=== PATIENT | male | born 1965 | race Caucasian/White ===

== ENCOUNTER 2021-01-21 23:22 | Inpatient (IN) ==
[2021-01-22] MEDS ORDERED: SODIUM CHLORIDE 0.9% 1000ML 1,000 ML IV ONE (00:21)
[2021-01-22 00:30] LABS: Hematocrit (blood only) 47.6 % (42-52); Hemoglobin 17.2 g/dL (14.0-18.0); Immature Granulocytes # (auto) 0.01 K/uL (0.00-0.02); Immature Granulocytes % (auto) 0.2 %; Lymphocytes # (auto) 0.48 K/uL (1.2-3.4); Lymphocytes % (auto) 8.4 %; Mean Corpuscular Hgb Conc 36.1 g/dL (32-36); Mean Corpuscular Volume 88.5 fL (80-100); Mean Platelet Volume 9.7 fL (7.4-10.4); Monocytes # (auto) 0.33 K/uL (0.11-0.59); Monocytes % (auto) 5.8 %; Neutrophils # (auto) 4.88 K/uL (1.4-6.5); Neutrophils % (auto) 85.6 %; Platelet Count 158 K/uL (130-400); RDW Coefficient of Variation 12.5 % (11.5-14.5); RDW Standard Deviation 39.7 fL (36.4-46.3); Red Blood Count 5.38 M/uL (4.7-6.1)
[2021-01-22 00:35] LABS: Appearance Urine Cloudy (Clear); Blood Urine 1+ (Negative); Color Urine Dark Yellow; Epithelial Cell Urine Auto >30 /lpf (0-5); Glucose Urine UA Negative (Negative); Ketones Urine 1+ (Negative); Leukocyte Esterase Urine Negative (Negative); Nitrite Urine Negative (Negative); Protein Urine 3+ (Negative); Urobilinogen Urine Negative (Negative); pH Urine 5.5 (4.5-7.5)
[2021-01-22 00:36] LABS: Bilirubin Urine 1+ (Negative)
[2021-01-22 00:41] LABS: INR 1.1 (0.9-1.1); Partial Thromboplastin Ratio 1.2; Partial Thromboplastin Time 31.3 Seconds (21.0-31.0); Prothrombin Time 11.1 Seconds (9.0-12.0)
--- NOTE | 2021-01-22 00:43 | Emergency Department Note ---
Impression & Plan Multifocal pneumonia, Left-sided chest pain, Elevated troponin, Syncope Admit to the [facility] ED Provider Note NAME: SO HUGO AGE: 55 SEX: M ARRIVES VIA: Walk-In INFORMANT: Patient ED PROVIDER(S): Pauline Rodriguez DO CHIEF COMPLAINT: Syncope PLAN: Disposition: Admit to the [facility] Condition: Stable MEDICAL DECISION MAKING: This is a 55-year-old male patient who was diagnosed with Covid yesterday who got out of bed to get some Tylenol for his fever when he had a syncopal event and struck his head. Patient has a laceration to the right forehead which required sutures. The patient was noted to be hypoxic at home. He complained of some left-sided chest pain here in the emergency department. Chest x-ray here shows evidence of a multifocal pneumonia. He had an elevated D-dimer and went for CT scan of the chest to rule out PE. This showed no evidence of pulmonary emboli but confirmed the multifocal airspace opacities consistent with Covid pneumonia. Patient was given IV Decadron. O2 saturations remained stable. However, the patient had an elevated troponin. This in conjunction with the patient's left-sided chest pain was concerning for myocarditis in light of the patient's Covid diagnosis. [facility]. Triage Nursing notes reviewed and agree with them. Vital Signs: reviewed and unremarkable Differential diagnosis: PE, myocarditis, vasovagal syncope, forehead laceration, dehydration ER treatment provided: IV normal saline Diagnostics interpreted by me: ECG: Normal sinus rhythm at a rate of [address] segment elevation or signs of ischemia. There is no ectopy. QTC is 467 ms. Cardiac Monitoring: Normal sinus rhythm at 98 Laboratory studies: See below Imaging studies: As per my interpretation Chest x-ray: Multifocal airspace opacities consistent with Covid CTA chest: As per stat rad Multiple scattered patchy groundglass airspace opacities likely secondary to an atypical respiratory infection compatible with COVID-19. No evidence of an acute pulmonary embolus. HPI: 55/M arrives for evaluation of syncope. [facility] of fever. He was tested for Covid with a positive result. He had a chest x-ray which he believes was negative. Tonight, the patient got up from bed to get medications for his fever and had a syncopal event striking his forehead on a nightstand. His family checked his pulse ox at that time and found it to be in the 80s. The patient describes some intermittent left-sided chest pain especially with different body positions. He had also had some dental abscess for which she was prescribed Zithromax a couple of days ago. ROS: See above HPI for pertinent positives & negatives. A total of 10 systems reviewed and were otherwise negative. PAST MEDICAL HISTORY:Vitiligo PAST SURGICAL HISTORY:See Below FAMILY HISTORY:See Below SOCIAL HISTORY:See Below HOME MEDICATIONS:See list ALLERGIES:See list VITALS:See Below PHYSICAL EXAMINATION: HEENT: Head - normocephalic with a 2 cm laceration to the right forehead. Pup ils are equal, round, and reactive to light. Extraocular eye muscles are intact, and sclera are anicteric. Nose - moist nasal mucosa without discharge. Mouth - moist buccal mucosa. Oropharynx is nonerythematous and there is no tonsillar exudate or edema noted. Neck: Supple; no pain to palpation over the posterior cervical spine. There is no nuchal rigidity or cervical lymphadenopathy. Heart: Regular rate and rhythm. There is a normal S1 and S2 with no murmurs, clicks, or gallops appreciated. Lungs: Clear to auscultation bilaterally with no wheezes, rales, or rhonchi. Abdomen: Soft, completely nontender, nondistended, with good bowel sounds. There are no palpable pulsatile masses or hepatosplenomegaly. There is no guarding, rigidity, or rebound noted. Extremities: No evidence of cyanosis, clubbing, or edema. There are easily palpable peripheral pulses. Skin: warm and dry with good turgor and no rashes. ED COURSE: Times/Reassessments: [id number]: The patient was evaluated in room C10. A complete history and physical was performed. Laboratory studies were drawn as above. The patient was given a liter of saline solution as he had had a syncopal event. Twelve-lead EKG was obtained. An order was placed for continuous cardiac monitoring. The patient is in a normal sinus rhythm at a rate of 98. Chest x-ray was performed. Patient was given 10 mg of IV Decadron. The patient will go for CT scan of the chest to rule out PE. Please see procedure note dictation from Vivek Perry PA-C for the repair of the wound to the patient's forehead. The patient remained hemodynamically stable. I discussed the case with the [facility] hospitalist and the patient will be admitted. Pauline Rodriguez DO Past Med/Surg History Social History Smoking Status: Never smoker Hx Alcohol Use: No Hx Substance Use: No Preferred Language: Sudanese Communication Ability: Effective Closet Organizer Required: No Beliefs That Will Affect Care: None Current Living Situation: Spouse Other Information That Helps Us Care for You: No Feels Safe at Home: Yes Safety Concerns: Feels Safe At This Time Assistive Devices: None Allergies Allergies Allergy/AdvReac Type Severity Reaction Status Date / Time ciprofloxacin AdvReac Intermediate Joint Pain Verified 01/22/21 00:33 Home Meds Home Medications Medication Instructions Recorded Confirmed amoxicillin 500 mg-potassium 1 tab PO BID 01/22/21 01/22/21 clavulanate 125 mg tablet fluticasone propionate 50 2 spray INTRANASAL DAILY PRN 01/22/21 01/22/21 mcg/actuation nasal spray,suspension Results & Data (ED) Vital Signs Vital Signs - 24 hr 01/21/21 23:26 01/22/21 00:24 01/22/21 00:30 Temperature 37.6 C H Temperature Source Temporal Artery Scan Pulse Rate 98 H 90 Respiratory Rate 20 18 Blood Pressure 161/87 H 153/96 H Blood Pressure Mean 111 115 Pulse Oximetry 97 95 93 Oxygen Delivery Method Room Air Room Air Room Air Sepsis Recent Fever Within 48 Hours Yes Sepsis New/Unexplained Change in Mental Status N/A Sepsis Action Taken by Nursing No Action Required 01/22/21 01:48 EDT 01/22/21 01:00 EST 01/22/21 02:00 Temperature 39.2 C H Temperature Source Oral Pulse Rate 91 H 90 Respiratory Rate 13 15 Blood Pressure 159/108 H 105/80 Blood Pressure Mean 125 88 Pulse Oximetry 94 92 Oxygen Delivery Method Room Air Sepsis Recent Fever Within 48 Hours Sepsis New/Unexplained Change in Mental Status Sepsis Action Taken by Nursing 01/22/21 02:30 01/22/21 03:30 Temperature Temperature Source Pulse Rate 91 H 82 Respiratory Rate 23 19 Blood Pressure 111/75 117/89 Blood Pressure Mean 87 98 Pulse Oximetry 93 95 Oxygen Delivery Method Sepsis Recent Fever Within 48 Hours Sepsis New/Unexplained Change in Mental Status Sepsis Action Taken by Nursing Laboratory Data Result diagrams: 01/22/21 00:00 01/22/21 00:00 Lab Results 01/21/21 01/22/21 01/22/21 Range/Units 23:48 00:00 00:00 WBC 5.70 (4.8-10.8) K/uL RBC 5.38 (4.7-6.1) M/uL Hgb 17.2 (14.0-18.0) g/dL Hct 47.6 (42-52) % MCV 88.5 (80-100) fL MCH 32.0 (25-34) pg MCHC 36.1 H (32-36) g/dL RDW Std Deviation 39.7 (36.4-46.3) fL RDW Coeff of Usman 12.5 (11.5-14.5) % Plt Count 158 (130-400) K/uL MPV 9.7 (7.4-10.4) fL Immature Gran % (Auto) 0.2 % Neut % (Auto) 85.6 % Lymph % (Auto) 8.4 % [place] % (Auto) 5.8 % Eos % (Auto) 0.0 % Baso % (Auto) 0.0 % Neut # (Auto) 4.88 (1.4-6.5) K/uL Lymph # (Auto) 0.48 L (1.2-3.4) K/uL [place] # (Auto) 0.33 (0.11-0.59) K/uL Eos # (Auto) 0.00 (0-0.5) K/uL Baso # (Auto) 0.00 (0-0.2) K/uL Immature Gran # (Auto) 0.01 (0.00-0.02) K/uL ESR (0-20) mm/hr PT (9.0-12.0) Seconds INR (0.9-1.1) APTT (21.0-31.0) Seconds PTT Ratio D-Dimer (0-500) ug/L FEU Sodium 138 (136-145) mmol/L Potassium 3.4 L (3.5-5.1) mmol/L Chloride 103 (98-107) mmol/L Carbon Dioxide 32 (21-32) mmol/L Anion Gap 3.0 (3-11) BUN 17 (7-18) mg/dl Creatinine 1.26 (0.6-1.4) mg/dl Est Cr Clr Drug Dosing 65.5 ml/min Est GFR ( Amer) 73.4 ml/min Est GFR (Non-Af Amer) 63.3 ml/min BUN/Creatinine Ratio 13.1 (10-20) Glucose 124 H (70-99) mg/dl Lactate (0.4-2.0) mmol/L Calcium 8.5 (8.5-10.1) mg/dl Magnesium 2.2 (1.8-2.4) mg/dl Total Bilirubin 0.6 (0.2-1) mg/dl AST 34 (15-37) U/L ALT 46 (12-78) U/L Alkaline Phosphatase 91 (45-117) U/L Troponin I 0.237 H* (0-0.045) ng/ml C-Reactive Protein (0-0.29) mg/dl Total Protein 8.1 (6.4-8.2) gm/dl Albumin 3.7 (3.4-5.0) gm/dl Globulin 4.4 H (2.5-4.0) gm/dl Albumin/Globulin Ratio 0.8 L (0.9-2) Urine Color Dark Yellow Urine Appearance Cloudy A (Clear) Urine pH 5.5 (4.5-7.5) Ur Specific [place] 1.030 (1.000-1.030) Urine Protein 3+ H (Negative) Urine Glucose (UA) Negative (Negative) Urine Ketones 1+ H (Negative) Urine Blood 1+ H (Negative) Urine Nitrite Negative (Negative) Urine Bilirubin 1+ H (Negative) Urine Urobilinogen Negative (Negative) Ur Leukocyte Esterase Negative (Negative) Urine WBC (Auto) 5-10 H (0-5) /hpf Urine RBC (Auto) 5-10 H (0-4) /hpf U Hyaline Cast (Auto) >30 H (0-5) /lpf U Epithel Cells (Auto) >30 H (0-5) /lpf Urine Bacteria (Auto) 1+ H (Negative) Ur Renal Epithelial Cell Not Reportable Granular Casts 10-20 H (0) /lpf WBC Casts 5-10 H (0) /lpf Urine Mucus Present A (None Prsent) COVID-19 Eval Order SARS-CoV-2 (PCR) (Negative) 01/22/21 01/22/21 01/22/21 Range/Units 00:00 00:00 00:16 WBC (4.8-10.8) K/uL RBC (4.7-6.1) M/uL Hgb (14.0-18.0) g/dL Hct (42-52) % MCV (80-100) fL MCH (25-34) pg MCHC (32-36) g/dL RDW Std Deviation (36.4-46.3) fL RDW Coeff of Usman (11.5-14.5) % Plt Count (130-400) K/uL MPV (7.4-10.4) fL Immature Gran % (Auto) % Neut % (Auto) % Lymph % (Auto) % [place] % (Auto) % Eos % (Auto) % Baso % (Auto) % Neut # (Auto) (1.4-6.5) K/uL Lymph # (Auto) (1.2-3.4) K/uL [place] # (Auto) (0.11-0.59) K/uL Eos # (Auto) (0-0.5) K/uL Baso # (Auto) (0-0.2) K/uL Immature Gran # (Auto) (0.00-0.02) K/uL ESR (0-20) mm/hr PT 11.1 (9.0-12.0) Seconds INR 1.1 (0.9-1.1) APTT 31.3 H (21.0-31.0) Seconds PTT Ratio 1.2 D-Dimer (0-500) ug/L FEU Sodium (136-145) mmol/L Potassium (3.5-5.1) mmol/L Chloride (98-107) mmol/L Carbon Dioxide (21-32) mmol/L Anion Gap (3-11) BUN (7-18) mg/dl Creatinine (0.6-1.4) mg/dl Est Cr Clr Drug Dosing ml/min Est GFR ( Amer) ml/min Est GFR (Non-Af Amer) ml/min BUN/Creatinine Ratio (10-20) Glucose (70-99) mg/dl Lactate (0.4-2.0) mmol/L Calcium (8.5-10.1) mg/dl Magnesium (1.8-2.4) mg/dl Total Bilirubin (0.2-1) mg/dl AST (15-37) U/L ALT (12-78) U/L Alkaline Phosphatase (45-117) U/L Troponin I (0-0.045) ng/ml C-Reactive Protein (0-0.29) mg/dl Total Protein (6.4-8.2) gm/dl Albumin (3.4-5.0) gm/dl Globulin (2.5-4.0) gm/dl Albumin/Globulin Ratio (0.9-2) Urine Color Urine Appearance (Clear) Urine pH (4.5-7.5) Ur Specific [place] (1.000-1.030) Urine Protein (Negative) Urine Glucose (UA) (Negative) Urine Ketones (Negative) Urine Blood (Negative) Urine Nitrite (Negative) Urine Bilirubin (Negative) Urine Urobilinogen (Negative) Ur Leukocyte Esterase (Negative) Urine WBC (Auto) (0-5) /hpf Urine RBC (Auto) (0-4) /hpf U Hyaline Cast (Auto) (0-5) /lpf U Epithel Cells (Auto) (0-5) /lpf Urine Bacteria (Auto) (Negative) Ur Renal Epithelial Cell Granular Casts (0) /lpf WBC Casts (0) /lpf Urine Mucus (None Prsent) COVID-19 Eval Order Covid[facility] at [facility] SARS-CoV-2 (PCR) POSITIVE A* (Negative) 01/22/21 01/22/21 01/22/21 Range/Units 00:16 00:29 03:45 WBC (4.8-10.8) K/uL RBC (4.7-6.1) M/uL Hgb (14.0-18.0) g/dL Hct (42-52) % MCV (80-100) fL MCH (25-34) pg MCHC (32-36) g/dL RDW Std Deviation (36.4-46.3) fL RDW Coeff of Usman (11.5-14.5) % Plt Count (130-400) K/uL MPV (7.4-10.4) fL Immature Gran % (Auto) % Neut % (Auto) % Lymph % (Auto) % [place] % (Auto) % Eos % (Auto) % Baso % (Auto) % Neut # (Auto) (1.4-6.5) K/uL Lymph # (Auto) (1.2-3.4) K/uL [place] # (Auto) (0.11-0.59) K/uL Eos # (Auto) (0-0.5) K/uL Baso # (Auto) (0-0.2) K/uL Immature Gran # (Auto) (0.00-0.02) K/uL ESR 14 (0-20) mm/hr PT (9.0-12.0) Seconds INR (0.9-1.1) APTT (21.0-31.0) Seconds PTT Ratio D-Dimer 730 H* (0-500) ug/L FEU Sodium (136-145) mmol/L Potassium (3.5-5.1) mmol/L Chloride (98-107) mmol/L Carbon Dioxide (21-32) mmol/L Anion Gap (3-11) BUN (7-18) mg/dl Creatinine (0.6-1.4) mg/dl Est Cr Clr Drug Dosing ml/min Est GFR ( Amer) ml/min Est GFR (Non-Af Amer) ml/min BUN/Creatinine Ratio (10-20) Glucose (70-99) mg/dl Lactate 0.7 (0.4-2.0) mmol/L Calcium (8.5-10.1) mg/dl Magnesium (1.8-2.4) mg/dl Total Bilirubin (0.2-1) mg/dl AST (15-37) U/L ALT (12-78) U/L Alkaline Phosphatase (45-117) U/L Troponin I (0-0.045) ng/ml C-Reactive Protein (0-0.29) mg/dl Total Protein (6.4-8.2) gm/dl Albumin (3.4-5.0) gm/dl Globulin (2.5-4.0) gm/dl Albumin/Globulin Ratio (0.9-2) Urine Color Urine Appearance (Clear) Urine pH (4.5-7.5) Ur Specific [place] (1.000-1.030) Urine Protein (Negative) Urine Glucose (UA) (Negative) Urine Ketones (Negative) Urine Blood (Negative) Urine Nitrite (Negative) Urine Bilirubin (Negative) Urine Urobilinogen (Negative) Ur Leukocyte Esterase (Negative) Urine WBC (Auto) (0-5) /hpf Urine RBC (Auto) (0-4) /hpf U Hyaline Cast (Auto) (0-5) /lpf U Epithel Cells (Auto) (0-5) /lpf Urine Bacteria (Auto) (Negative) Ur Renal Epithelial Cell Granular Casts (0) /lpf WBC Casts (0) /lpf Urine Mucus (None Prsent) COVID-19 Eval Order SARS-CoV-2 (PCR) (Negative) 01/22/21 Range/Units 03:45 WBC (4.8-10.8) K/uL RBC (4.7-6.1) M/uL Hgb (14.0-18.0) g/dL Hct (42-52) % MCV (80-100) fL MCH (25-34) pg MCHC (32-36) g/dL RDW Std Deviation (36.4-46.3) fL RDW Coeff of Usman (11.5-14.5) % Plt Count (130-400) K/uL MPV (7.4-10.4) fL Immature Gran % (Auto) % Neut % (Auto) % Lymph % (Auto) % [place] % (Auto) % Eos % (Auto) % Baso % (Auto) % Neut # (Auto) (1.4-6.5) K/uL Lymph # (Auto) (1.2-3.4) K/uL [place] # (Auto) (0.11-0.59) K/uL Eos # (Auto) (0-0.5) K/uL Baso # (Auto) (0-0.2) K/uL Immature Gran # (Auto) (0.00-0.02) K/uL ESR (0-20) mm/hr PT (9.0-12.0) Seconds INR (0.9-1.1) APTT (21.0-31.0) Seconds PTT Ratio D-Dimer (0-500) ug/L FEU Sodium (136-145) mmol/L Potassium (3.5-5.1) mmol/L Chloride (98-107) mmol/L Carbon Dioxide (21-32) mmol/L Anion Gap (3-11) BUN (7-18) mg/dl Creatinine (0.6-1.4) mg/dl Est Cr Clr Drug Dosing ml/min Est GFR ( Amer) ml/min Est GFR (Non-Af Amer) ml/min BUN/Creatinine Ratio (10-20) Glucose (70-99) mg/dl Lactate (0.4-2.0) mmol/L Calcium (8.5-10.1) mg/dl Magnesium (1.8-2.4) mg/dl Total Bilirubin (0.2-1) mg/dl AST (15-37) U/L ALT (12-78) U/L Alkaline Phosphatase (45-117) U/L Troponin I 0.215 H* (0-0.045) ng/ml C-Reactive Protein 5.41 H (0-0.29) mg/dl Total Protein (6.4-8.2) gm/dl Albumin (3.4-5.0) gm/dl Globulin (2.5-4.0) gm/dl Albumin/Globulin Ratio (0.9-2) Urine Color Urine Appearance (Clear) Urine pH (4.5-7.5) Ur Specific [place] (1.000-1.030) Urine Protein (Negative) Urine Glucose (UA) (Negative) Urine Ketones (Negative) Urine Blood (Negative) Urine Nitrite (Negative) Urine Bilirubin (Negative) Urine Urobilinogen (Negative) Ur Leukocyte Esterase (Negative) Urine WBC (Auto) (0-5) /hpf Urine RBC (Auto) (0-4) /hpf U Hyaline Cast (Auto) (0-5) /lpf U Epithel Cells (Auto) (0-5) /lpf Urine Bacteria (Auto) (Negative) Ur Renal Epithelial Cell Granular Casts (0) /lpf WBC Casts (0) /lpf Urine Mucus (None Prsent) COVID-19 Eval Order SARS-CoV-2 (PCR) (Negative) Administered Medications Potassium Chloride 40 meq/ (Sodium Chloride) 1,020 mls @ 75 mls/hr IV .[id number] ONE Stop: 01/22/21 18:20 Last Admin: 01/22/21 05:43 Dose: 75 mls/hr Documented by: [id number] Discontinued Medications Acetaminophen (Acetaminophen 500 Mg Tab) 1,000 mg PO NOW STA Stop: 01/22/21 01:50 EST Last Admin: 01/22/21 01:53 EDT Dose: 1,000 mg Documented by: [id number] Dexamethasone (Dexamethasone Sod Inj 4 Mg/Ml Vial) 10 mg IV NOW STA Stop: 01/22/21 01:24 EST Last Admin: 01/22/21 01:43 EDT Dose: 10 mg Documented by: [id number] Sodium Chloride (Nss 1000ml) 1,000 mls @ 999 mls/hr IV .[id number] ONE Stop: 01/22/21 01:21 EST Last Infusion: 01/22/21 01:31 EDT Dose: 0 mls/hr Documented by: [id number] Admin: 01/22/21 00:25 Dose: 999 mls/hr Documented by: [id number] Remdesivir 200 mg/ Sodium (Chloride) 250 mls @ 125 mls/hr IV NOW STA; Protocol Stop: 01/22/21 05:35 Last Admin: 01/22/21 04:18 Dose: 125 mls/hr Documented by: [id number] Ioversol (Optiray 320 125ml) 120 ml IV ONCE ONE Stop: 01/22/21 01:25 EST Last Admin: 01/22/21 01:24 EST Dose: 120 ml Documented by: [id number] Ketorolac Tromethamine (Ketorolac 30 Mg/Ml Vial) 30 mg IV NOW ONE Stop: 01/22/21 01:50 EST Last Admin: 01/22/21 01:53 EDT Dose: 30 mg Documented by: [id number] Levalbuterol HCl (Levalbuterol Tartrate 15 Gm Hfa.Aer.Ad) 2 puffs INH NOW STA Stop: 01/22/21 03:38 Last Admin: 01/22/21 04:19 Dose: 2 puffs Documented by: [id number] Lidocaine HCl (Xylocaine 1%/Sod Bicarb 20 Ml Vial) 20 ml INFIL NOW ONE Stop: 01/22/21 01:32 EST Last Admin: 01/22/21 02:35 Dose: 20 ml Documented by: [id number] Potassium Chloride (Potassium Chloride Crtab 20 Meq Tabcr) 40 meq PO NOW STA Stop: 01/22/21 02:56 Last Admin: 01/22/21 03:30 Dose: 40 meq Documented by: [id number] Discharge Plan Visit Data Chief Complaint: Dizziness Stated Complaint: COVID+ PASSED OUT AND FELL-CUT ON HEAD-OXYGEN 85 ED Provider: Pauline Rodriguez Discharge Problem: Multifocal pneumonia, Left-sided chest pain, Elevated troponin, Syncope Discharge Instructions Interventions: ED Discharge Assessment Last Done: 01/22/21 05:57 Discharge Problem: Syncope Qualifiers: Syncope type: unspecified Qualified Code(s): R55 - Syncope and collapse
[2021-01-22 00:49] LABS: Albumin Level 3.7 gm/dl (3.4-5.0); BUN Creatinine Ratio 13.1 (10-20); Calcium 8.5 mg/dl (8.5-10.1); Creatinine Clr Calc Pharmacy 65.5 ml/min; Est GFR (African American) 73.4 ml/min; Est GFR (Non-African American) 63.3 ml/min; Magnesium 2.2 mg/dl (1.8-2.4); Potassium 3.4 mmol/L (3.5-5.1)
[2021-01-22 00:59] LABS: Albumin Globulin Ratio 0.8 (0.9-2); Bilirubin,Total 0.6 mg/dl (0.2-1); Globulin 4.4 gm/dl (2.5-4.0); Total Protein 8.1 gm/dl (6.4-8.2); Troponin I 0.237 ng/ml (0-0.045)
[2021-01-22 00:59] LABS: Cast Urine Automated >30 /lpf (0-5); Mucus Urine Present (None Prsent)
[2021-01-22 01:00] LABS: Bacteria Urine Automated 1+ (Negative)
[2021-01-22] MEDS ORDERED: DEXAMETHASONE SOD INJ 4 MG/ML VIAL IV STA (01:23)
[2021-01-22] MEDS ORDERED: OPTIRAY 320 125ml IV ONE (01:24)
[2021-01-22 01:29] LABS: D Dimer 730 ug/L FEU (0-500)
[2021-01-22] MEDS ORDERED: XYLOCAINE 1%/SOD BICARB 20 ML VIAL INFIL ONE (01:31)
[2021-01-22] MEDS ORDERED: KETOROLAC 30 MG/ML VIAL IV ONE (01:49)
[2021-01-22] MEDS ORDERED: ACETAMINOPHEN 500 MG TAB PO STA (01:49)
--- NOTE | 2021-01-22 02:49 | Emergency Department Note ---
Impression & Plan Multifocal pneumonia, Left-sided chest pain, Elevated troponin, Syncope ED Provider Note Patient was seen and evaluated at the request of my attending physician, Dr. Rodriguez, for a forehead laceration. Please see Dr. Rodriguez's dictation for full history of present illness and emergency department course. In short, the patient had a syncopal/fainting episode, fell, and struck his head. On examination he has a 2.0 cm vertical fairly linear laceration just to the right of the mid forehead. This does gape and will require repair. Laceration repair. Patient elects to have their laceration repaired. Verbal consent was obtained to perform the procedure. There is an abundance of materials available for the procedure. Patient is not allergic to latex. Using sterile technique the wound was cleaned with Betadine. The area was sterilely draped. 3 ml of 1% buffered lidocaine was used to anesthetize the forehead laceration. Once the patient was anesthetized, the wound was copiously irrigated under pressure with sterile saline. The wound was explored and there were no deep structures injured such as tendons, bone, or significant blood vessels. The laceration was repaired using 3 simple interrupted 6-0 nylon sutures with the wound edges being well approximated. Hemostasis was achieved. The area was cleaned with sterile saline and dressed with bacitracin ointment and bandage. Patient tolerated the procedure well without complications. Blood loss was negligible. Past Med/Surg History Social History Smoking Status: Never smoker Hx Alcohol Use: No Hx Substance Use: No Preferred Language: Arabic Communication Ability: Effective Programmer Numerical Control Required: No Beliefs That Will Affect Care: None Current Living Situation: Spouse Other Information That Helps Us Care for You: No Feels Safe at Home: Yes Safety Concerns: Feels Safe At This Time Assistive Devices: None Allergies Allergies Allergy/AdvReac Type Severity Reaction Status Date / Time ciprofloxacin AdvReac Intermediate Joint Pain Verified 01/22/21 00:33 Home Meds Home Medications Medication Instructions Recorded Confirmed amoxicillin 500 mg-potassium 1 tab PO BID 01/22/21 01/22/21 clavulanate 125 mg tablet fluticasone propionate 50 2 spray INTRANASAL DAILY PRN 01/22/21 01/22/21 mcg/actuation nasal spray,suspension Results & Data (ED) Vital Signs Vital Signs - 24 hr 11/06/21 23:26 01/22/21 00:24 01/22/21 00:30 Temperature 37.6 C H Temperature Source Temporal Artery Scan Pulse Rate 98 H 90 Respiratory Rate 20 18 Blood Pressure 161/87 H 153/96 H Blood Pressure Mean 111 115 Pulse Oximetry 97 95 93 Oxygen Delivery Method Room Air Room Air Room Air Sepsis Recent Fever Within 48 Hours Yes Sepsis New/Unexplained Change in Mental Status N/A Sepsis Action Taken by Nursing No Action Required 01/22/21 01:48 EDT 01/22/21 01:00 EST 01/22/21 02:00 Temperature 39.2 C H Temperature Source Oral Pulse Rate 91 H 90 Respiratory Rate 13 15 Blood Pressure 159/108 H 105/80 Blood Pressure Mean 125 88 Pulse Oximetry 94 92 Oxygen Delivery Method Room Air Sepsis Recent Fever Within 48 Hours Sepsis New/Unexplained Change in Mental Status Sepsis Action Taken by Nursing 01/22/21 02:30 01/22/21 03:30 Temperature Temperature Source Pulse Rate 91 H 82 Respiratory Rate 23 19 Blood Pressure 111/75 117/89 Blood Pressure Mean 87 98 Pulse Oximetry 93 95 Oxygen Delivery Method Sepsis Recent Fever Within 48 Hours Sepsis New/Unexplained Change in Mental Status Sepsis Action Taken by Nursing Laboratory Data Result diagrams: 01/22/21 00:00 01/22/21 00:00 Lab Results 01/21/21 01/22/21 01/22/21 Range/Units 23:48 00:00 00:00 WBC 5.70 (4.8-10.8) K/uL RBC 5.38 (4.7-6.1) M/uL Hgb 17.2 (14.0-18.0) g/dL Hct 47.6 (42-52) % MCV 88.5 (80-100) fL MCH 32.0 (25-34) pg MCHC 36.1 H (32-36) g/dL RDW Std Deviation 39.7 (36.4-46.3) fL RDW Coeff of Usman 12.5 (11.5-14.5) % Plt Count 158 (130-400) K/uL MPV 9.7 (7.4-10.4) fL Immature Gran % (Auto) 0.2 % Neut % (Auto) 85.6 % Lymph % (Auto) 8.4 % [place] % (Auto) 5.8 % Eos % (Auto) 0.0 % Baso % (Auto) 0.0 % Neut # (Auto) 4.88 (1.4-6.5) K/uL Lymph # (Auto) 0.48 L (1.2-3.4) K/uL [place] # (Auto) 0.33 (0.11-0.59) K/uL Eos # (Auto) 0.00 (0-0.5) K/uL Baso # (Auto) 0.00 (0-0.2) K/uL Immature Gran # (Auto) 0.01 (0.00-0.02) K/uL ESR (0-20) mm/hr PT (9.0-12.0) Seconds INR (0.9-1.1) APTT (21.0-31.0) Seconds PTT Ratio D-Dimer (0-500) ug/L FEU Sodium 138 (136-145) mmol/L Potassium 3.4 L (3.5-5.1) mmol/L Chloride 103 (98-107) mmol/L Carbon Dioxide 32 (21-32) mmol/L Anion Gap 3.0 (3-11) BUN 17 (7-18) mg/dl Creatinine 1.26 (0.6-1.4) mg/dl Est Cr Clr Drug Dosing 65.5 ml/min Est GFR ( Amer) 73.4 ml/min Est GFR (Non-Af Amer) 63.3 ml/min BUN/Creatinine Ratio 13.1 (10-20) Glucose 124 H (70-99) mg/dl Lactate (0.4-2.0) mmol/L Calcium 8.5 (8.5-10.1) mg/dl Magnesium 2.2 (1.8-2.4) mg/dl Total Bilirubin 0.6 (0.2-1) mg/dl AST 34 (15-37) U/L ALT 46 (12-78) U/L Alkaline Phosphatase 91 (45-117) U/L Troponin I 0.237 H* (0-0.045) ng/ml C-Reactive Protein (0-0.29) mg/dl Total Protein 8.1 (6.4-8.2) gm/dl Albumin 3.7 (3.4-5.0) gm/dl Globulin 4.4 H (2.5-4.0) gm/dl Albumin/Globulin Ratio 0.8 L (0.9-2) Urine Color Dark Yellow Urine Appearance Cloudy A (Clear) Urine pH 5.5 (4.5-7.5) Ur Specific [place] 1.030 (1.000-1.030) Urine Protein 3+ H (Negative) Urine Glucose (UA) Negative (Negative) Urine Ketones 1+ H (Negative) Urine Blood 1+ H (Negative) Urine Nitrite Negative (Negative) Urine Bilirubin 1+ H (Negative) Urine Urobilinogen Negative (Negative) Ur Leukocyte Esterase Negative (Negative) Urine WBC (Auto) 5-10 H (0-5) /hpf Urine RBC (Auto) 5-10 H (0-4) /hpf U Hyaline Cast (Auto) >30 H (0-5) /lpf U Epithel Cells (Auto) >30 H (0-5) /lpf Urine Bacteria (Auto) 1+ H (Negative) Ur Renal Epithelial Cell Not Reportable Granular Casts 10-20 H (0) /lpf WBC Casts 5-10 H (0) /lpf Urine Mucus Present A (None Prsent) COVID-19 Eval Order SARS-CoV-2 (PCR) (Negative) 01/22/21 01/22/21 01/22/21 Range/Units 00:00 00:00 00:16 WBC (4.8-10.8) K/uL RBC (4.7-6.1) M/uL Hgb (14.0-18.0) g/dL Hct (42-52) % MCV (80-100) fL MCH (25-34) pg MCHC (32-36) g/dL RDW Std Deviation (36.4-46.3) fL RDW Coeff of Usman (11.5-14.5) % Plt Count (130-400) K/uL MPV (7.4-10.4) fL Immature Gran % (Auto) % Neut % (Auto) % Lymph % (Auto) % [place] % (Auto) % Eos % (Auto) % Baso % (Auto) % Neut # (Auto) (1.4-6.5) K/uL Lymph # (Auto) (1.2-3.4) K/uL [place] # (Auto) (0.11-0.59) K/uL Eos # (Auto) (0-0.5) K/uL Baso # (Auto) (0-0.2) K/uL Immature Gran # (Auto) (0.00-0.02) K/uL ESR (0-20) mm/hr PT 11.1 (9.0-12.0) Seconds INR 1.1 (0.9-1.1) APTT 31.3 H (21.0-31.0) Seconds PTT Ratio 1.2 D-Dimer (0-500) ug/L FEU Sodium (136-145) mmol/L Potassium (3.5-5.1) mmol/L Chloride (98-107) mmol/L Carbon Dioxide (21-32) mmol/L Anion Gap (3-11) BUN (7-18) mg/dl Creatinine (0.6-1.4) mg/dl Est Cr Clr Drug Dosing ml/min Est GFR ( Amer) ml/min Est GFR (Non-Af Amer) ml/min BUN/Creatinine Ratio (10-20) Glucose (70-99) mg/dl Lactate (0.4-2.0) mmol/L Calcium (8.5-10.1) mg/dl Magnesium (1.8-2.4) mg/dl Total Bilirubin (0.2-1) mg/dl AST (15-37) U/L ALT (12-78) U/L Alkaline Phosphatase (45-117) U/L Troponin I (0-0.045) ng/ml C-Reactive Protein (0-0.29) mg/dl Total Protein (6.4-8.2) gm/dl Albumin (3.4-5.0) gm/dl Globulin (2.5-4.0) gm/dl Albumin/Globulin Ratio (0.9-2) Urine Color Urine Appearance (Clear) Urine pH (4.5-7.5) Ur Specific [place] (1.000-1.030) Urine Protein (Negative) Urine Glucose (UA) (Negative) Urine Ketones (Negative) Urine Blood (Negative) Urine Nitrite (Negative) Urine Bilirubin (Negative) Urine Urobilinogen (Negative) Ur Leukocyte Esterase (Negative) Urine WBC (Auto) (0-5) /hpf Urine RBC (Auto) (0-4) /hpf U Hyaline Cast (Auto) (0-5) /lpf U Epithel Cells (Auto) (0-5) /lpf Urine Bacteria (Auto) (Negative) Ur Renal Epithelial Cell Granular Casts (0) /lpf WBC Casts (0) /lpf Urine Mucus (None Prsent) COVID-19 Eval Order Covid19 at [facility] SARS-CoV-2 (PCR) POSITIVE A* (Negative) 01/22/21 01/22/21 01/22/21 Range/Units 00:16 00:29 03:45 WBC (4.8-10.8) K/uL RBC (4.7-6.1) M/uL Hgb (14.0-18.0) g/dL Hct (42-52) % MCV (80-100) fL MCH (25-34) pg MCHC (32-36) g/dL RDW Std Deviation (36.4-46.3) fL RDW Coeff of Usman (11.5-14.5) % Plt Count (130-400) K/uL MPV (7.4-10.4) fL Immature Gran % (Auto) % Neut % (Auto) % Lymph % (Auto) % [place] % (Auto) % Eos % (Auto) % Baso % (Auto) % Neut # (Auto) (1.4-6.5) K/uL Lymph # (Auto) (1.2-3.4) K/uL [place] # (Auto) (0.11-0.59) K/uL Eos # (Auto) (0-0.5) K/uL Baso # (Auto) (0-0.2) K/uL Immature Gran # (Auto) (0.00-0.02) K/uL ESR 14 (0-20) mm/hr PT (9.0-12.0) Seconds INR (0.9-1.1) APTT (21.0-31.0) Seconds PTT Ratio D-Dimer 730 H* (0-500) ug/L FEU Sodium (136-145) mmol/L Potassium (3.5-5.1) mmol/L Chloride (98-107) mmol/L Carbon Dioxide (21-32) mmol/L Anion Gap (3-11) BUN (7-18) mg/dl Creatinine (0.6-1.4) mg/dl Est Cr Clr Drug Dosing ml/min Est GFR ( Amer) ml/min Est GFR (Non-Af Amer) ml/min BUN/Creatinine Ratio (10-20) Glucose (70-99) mg/dl Lactate 0.7 (0.4-2.0) mmol/L Calcium (8.5-10.1) mg/dl Magnesium (1.8-2.4) mg/dl Total Bilirubin (0.2-1) mg/dl AST (15-37) U/L ALT (12-78) U/L Alkaline Phosphatase (45-117) U/L Troponin I (0-0.045) ng/ml C-Reactive Protein (0-0.29) mg/dl Total Protein (6.4-8.2) gm/dl Albumin (3.4-5.0) gm/dl Globulin (2.5-4.0) gm/dl Albumin/Globulin Ratio (0.9-2) Urine Color Urine Appearance (Clear) Urine pH (4.5-7.5) Ur Specific [place] (1.000-1.030) Urine Protein (Negative) Urine Glucose (UA) (Negative) Urine Ketones (Negative) Urine Blood (Negative) Urine Nitrite (Negative) Urine Bilirubin (Negative) Urine Urobilinogen (Negative) Ur Leukocyte Esterase (Negative) Urine WBC (Auto) (0-5) /hpf Urine RBC (Auto) (0-4) /hpf U Hyaline Cast (Auto) (0-5) /lpf U Epithel Cells (Auto) (0-5) /lpf Urine Bacteria (Auto) (Negative) Ur Renal Epithelial Cell Granular Casts (0) /lpf WBC Casts (0) /lpf Urine Mucus (None Prsent) COVID-19 Eval Order SARS-CoV-2 (PCR) (Negative) 01/22/21 Range/Units 03:45 WBC (4.8-10.8) K/uL RBC (4.7-6.1) M/uL Hgb (14.0-18.0) g/dL Hct (42-52) % MCV (80-100) fL MCH (25-34) pg MCHC (32-36) g/dL RDW Std Deviation (36.4-46.3) fL RDW Coeff of Usman (11.5-14.5) % Plt Count (130-400) K/uL MPV (7.4-10.4) fL Immature Gran % (Auto) % Neut % (Auto) % Lymph % (Auto) % [place] % (Auto) % Eos % (Auto) % Baso % (Auto) % Neut # (Auto) (1.4-6.5) K/uL Lymph # (Auto) (1.2-3.4) K/uL [place] # (Auto) (0.11-0.59) K/uL Eos # (Auto) (0-0.5) K/uL Baso # (Auto) (0-0.2) K/uL Immature Gran # (Auto) (0.00-0.02) K/uL ESR (0-20) mm/hr PT (9.0-12.0) Seconds INR (0.9-1.1) APTT (21.0-31.0) Seconds PTT Ratio D-Dimer (0-500) ug/L FEU Sodium (136-145) mmol/L Potassium (3.5-5.1) mmol/L Chloride (98-107) mmol/L Carbon Dioxide (21-32) mmol/L Anion Gap (3-11) BUN (7-18) mg/dl Creatinine (0.6-1.4) mg/dl Est Cr Clr Drug Dosing ml/min Est GFR ( Amer) ml/min Est GFR (Non-Af Amer) ml/min BUN/Creatinine Ratio (10-20) Glucose (70-99) mg/dl Lactate (0.4-2.0) mmol/L Calcium (8.5-10.1) mg/dl Magnesium (1.8-2.4) mg/dl Total Bilirubin (0.2-1) mg/dl AST (15-37) U/L ALT (12-78) U/L Alkaline Phosphatase (45-117) U/L Troponin I 0.215 H* (0-0.045) ng/ml C-Reactive Protein 5.41 H (0-0.29) mg/dl Total Protein (6.4-8.2) gm/dl Albumin (3.4-5.0) gm/dl Globulin (2.5-4.0) gm/dl Albumin/Globulin Ratio (0.9-2) Urine Color Urine Appearance (Clear) Urine pH (4.5-7.5) Ur Specific [place] (1.000-1.030) Urine Protein (Negative) Urine Glucose (UA) (Negative) Urine Ketones (Negative) Urine Blood (Negative) Urine Nitrite (Negative) Urine Bilirubin (Negative) Urine Urobilinogen (Negative) Ur Leukocyte Esterase (Negative) Urine WBC (Auto) (0-5) /hpf Urine RBC (Auto) (0-4) /hpf U Hyaline Cast (Auto) (0-5) /lpf U Epithel Cells (Auto) (0-5) /lpf Urine Bacteria (Auto) (Negative) Ur Renal Epithelial Cell Granular Casts (0) /lpf WBC Casts (0) /lpf Urine Mucus (None Prsent) COVID-19 Eval Order SARS-CoV-2 (PCR) (Negative) Administered Medications Acetaminophen (Acetaminophen 325 Mg Tab) 650 mg PO Q6H PRN PRN Reason: Fever/pain Stop: 02/21/21 06:39 Last Admin: 01/22/21 17:00 Dose: 650 mg Documented by: [id number] Aspirin (Aspirin 81 Mg Ectab) 81 mg PO DAILY [facility] Stop: 02/21/21 11:59 Last Admin: 01/22/21 12:29 Dose: 81 mg Documented by: [id number] Heparin Sodium/Dextrose (Heparin Sodium/Dextrose) 25,000 units in 500 mls @ 23 mls/hr IV .[id number] CHELY; Protocol Stop: 02/21/21 11:29 Last Titration: 01/22/21 20:30 Dose: 1,150 units/hr, 23 mls/hr Documented by: [id number] Cosigned by: [id number] Titration: 01/22/21 19:32 Dose: 0 units/hr, 0 mls/hr Documented by: [id number] Cosigned by: [id number] Admin: 01/22/21 12:19 Dose: 1,350 units/hr, 27 mls/hr Documented by: [id number] Cosigned by: [id number] Discontinued Medications Acetaminophen (Acetaminophen 500 Mg Tab) 1,000 mg PO NOW STA Stop: 01/22/21 01:50 EST Last Admin: 01/22/21 01:53 EDT Dose: 1,000 mg Documented by: [id number] Dexamethasone (Dexamethasone Sod Inj 4 Mg/Ml Vial) 10 mg IV NOW STA Stop: 01/22/21 01:24 EST Last Admin: 01/22/21 01:43 EDT Dose: 10 mg Documented by: [id number] Sodium Chloride (Nss 1000ml) 1,000 mls @ 999 mls/hr IV .[id number] ONE Stop: 01/22/21 01:21 EST Last Infusion: 01/22/21 01:31 EDT Dose: 0 mls/hr Documented by: [id number] Admin: 01/22/21 00:25 Dose: 999 mls/hr Documented by: [id number] Remdesivir 200 mg/ Sodium (Chloride) 250 mls @ 125 mls/hr IV NOW STA; Protocol Stop: 01/22/21 05:35 Last Infusion: 01/22/21 07:08 Dose: 0 mls/hr Documented by: [id number] Admin: 01/22/21 04:18 Dose: 125 mls/hr Documented by: [id number] Potassium Chloride 40 meq/ (Sodium Chloride) 1,020 mls @ 75 mls/hr IV .[id number] ONE Stop: 01/22/21 18:20 Last Infusion: 01/22/21 19:30 Dose: 0 mls/hr Documented by: [id number] Admin: 01/22/21 05:43 Dose: 75 mls/hr Documented by: [id number] Heparin Sodium (Porcine) 6,000 (units/ Syringe) 6 mls @ 10 mls/min IV 1200 ONE Stop: 01/22/21 12:01 Last Admin: 01/22/21 12:20 Dose: 10 mls/min Documented by: [id number] Cosigned by: [id number] Ioversol (Optiray 320 125ml) 120 ml IV ONCE ONE Stop: 01/22/21 01:25 EST Last Admin: 01/22/21 01:24 EST Dose: 120 ml Documented by: [id number] Ketorolac Tromethamine (Ketorolac 30 Mg/Ml Vial) 30 mg IV NOW ONE Stop: 01/22/21 01:50 EST Last Admin: 01/22/21 01:53 EDT Dose: 30 mg Documented by: [id number] Levalbuterol HCl (Levalbuterol Tartrate 15 Gm Hfa.Aer.Ad) 2 puffs INH NOW STA Stop: 01/22/21 03:38 Last Admin: 01/22/21 04:19 Dose: 2 puffs Documented by: [id number] Lidocaine HCl (Xylocaine 1%/Sod Bicarb 20 Ml Vial) 20 ml INFIL NOW ONE Stop: 01/22/21 01:32 EST Last Admin: 01/22/21 02:35 Dose: 20 ml Documented by: [id number] Potassium Chloride (Potassium Chloride Crtab 20 Meq Tabcr) 40 meq PO NOW STA Stop: 01/22/21 02:56 Last Admin: 01/22/21 03:30 Dose: 40 meq Documented by: [id number] Sodium Chloride (Sodium Chloride 0.9% 10ml Flush) 30 ml IV DAILY@1999 CHELY Stop: 01/25/21 08:00 Last Admin: 01/22/21 07:08 Dose: 30 ml Documented by: [id number] Discharge Plan Visit Data Chief Complaint: Dizziness Stated Complaint: COVID+ PASSED OUT AND FELL-CUT ON HEAD-OXYGEN 85 ED Provider: Pauline Rodriguez Discharge Problem: Multifocal pneumonia, Left-sided chest pain, Elevated troponin, Syncope Patient Disposition: Admitted As Inpatient Discharge Instructions Interventions: ED Discharge Assessment Last Done: 01/22/21 05:57 Discharge Problem: Syncope Qualifiers: Syncope type: unspecified Qualified Code(s): R55 - Syncope and collapse
[2021-01-22] MEDS ORDERED: POTASSIUM CHLORIDE CRTAB 20 MEQ TABCR PO STA (02:55)
--- NOTE | 2021-01-22 03:34 | History & Physical Report ---
Date of Service January 22, 2021 Assessment & Plan (1) Pneumonia due to COVID-19 virus: Plan: Severe given O2 sats less than 94 on room air Chest pain with troponin elevation, possible viral myocarditis Syncope possibly from orthostasis given clinical dehydration as evidenced by ketonuria Rule out cardiac dysfunction Hypokalemia secondary to poor p.o. intake Hyperglycemia rule out DM PCU Decadron and Remdesivir for severe COVID-19 pneumonia. (Patient was counseled regarding potential adverse effects from Remdesivir therapy and provided with patient education sheet.) Follow troponin; TTE, Cardiology consult Re: Chest pain with troponin elevation Check orthostatic vitals IVF, replace potassium Check hemoglobin A1c DVT prophylaxis SCDs RE traumatic forehead laceration status post repair Full code Text document was generated using [employer] voice recognition software. It may contain grammatical or spelling errors. Kindly contact undersigned for clarification of any documentation item in question. History of Present Illness Chief Complaint: Low O2, COVID-19, syncope Primary Care Provider: Kristi Bautista History obtained from patient and records. No significant medical history. 5 days ago, patient noted sinus congestion symptoms with cough symptoms productive of clear sputum. PCP prescribed Augmentin for possible sinusitis. No known recent COVID-19 contacts. Patient has not received COVID-19 vaccination. 2 days ago, patient noted fever, chills. Patient consulted [facility] ER. COVID-19 test was positive. Patient told he had pneumonia on CXR but did not need admission. Worsening shortness of breath at home especially on exertion. Patient also noted achy left-sided chest pain without radiation. Poor appetite with achy headache symptoms. O2 sats 85 on home pulse ox. Patient felt lightheaded on getting up last night subsequently passed out. Patient woke up with his family around him. No tongue biting, no witnessed seizures. Bleeding forehead wound noted after the fall. At the ER, lowest O2 sats noted to be 92 on room air. Decadron administered at the ER. 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 Allergies Allergy/AdvReac Type Severity Reaction Status Date / Time ciprofloxacin AdvReac Intermediate Joint Pain Verified 01/22/21 00:33 Home Medications Medication Instructions Recorded Confirmed Type amoxicillin 500 mg-potassium 1 tab PO BID 01/22/21 01/22/21 History clavulanate 125 mg tablet fluticasone propionate 50 2 spray INTRANASAL DAILY PRN 01/22/21 01/22/21 History mcg/actuation nasal spray,suspension Past Med/Surg History Social History Smoking Status: Never smoker Hx Alcohol Use: No Hx Substance Use: No Preferred Language: Thai Communication Ability: Effective Audio Engineer Required: No Beliefs That Will Affect Care: None Current Living Situation: Spouse Other Information That Helps Us Care for You: No Feels Safe at Home: Yes Safety Concerns: Feels Safe At This Time Assistive Devices: None Review of Systems Review of Systems: As per HPI, all 10 systems reviewed, all other ROS negative Physical Exam Physical Exam: GENERAL: Comfortable, pleasant, no respiratory distress SKIN: Normal color, warm HEENT: Sutured laceration right frontal, [place] palpebral conjunctivae, no ptosis, dry buccal mucosa NECK : Supple, no tenderness CHEST : Decreased breath sounds, no tenderness HEART : RRR, no obvious murmurs ABDOMEN: Some distention, nontender EXTREMITIES : No LE swelling/tenderness, no other conspicuous deformities noted NEUROLOGIC : Coherent, no facial asymmetry, no other gross focality Results & Data Results & Data ([facility]) Vital Signs (Past 12 Hours) Vital Signs Temp Pulse Resp BP Pulse Ox 01/22/21 02:30 91 H 23 111/75 93 01/22/21 02:00 90 15 105/80 92 01/22/21 01:00 EST 91 H 13 159/108 H 94 01/22/21 01:48 EDT 39.2 C H 01/22/21 00:30 90 18 153/96 H 93 01/22/21 00:24 95 01/21/21 23:26 37.6 C H 98 H 20 161/87 H 97 Laboratory Results Laboratory Results WBC 5.70 K/uL (4.8-10.8) 01/22/21 00:00 RBC 5.38 M/uL (4.7-6.1) 01/22/21 00:00 Hgb 17.2 g/dL (14.0-18.0) 01/22/21 00:00 Hct 47.6 % (42-52) 01/22/21 00:00 MCV 88.5 fL (80-100) 01/22/21 00:00 MCH 32.0 pg (25-34) 01/22/21 00:00 MCHC 36.1 g/dL (32-36) H 01/22/21 00:00 RDW Std Deviation 39.7 fL (36.4-46.3) 01/22/21 00:00 RDW Coeff of Usman 12.5 % (11.5-14.5) 01/22/21 00:00 Plt Count 158 K/uL (130-400) 01/22/21 00:00 MPV 9.7 fL (7.4-10.4) 01/22/21 00:00 Immature Gran % (Auto) 0.2 % 01/22/21 00:00 Neut % (Auto) 85.6 % 01/22/21 00:00 Lymph % (Auto) 8.4 % 01/22/21 00:00 [place] % (Auto) 5.8 % 01/22/21 00:00 Eos % (Auto) 0.0 % 01/22/21 00:00 Baso % (Auto) 0.0 % 01/22/21 00:00 Neut # (Auto) 4.88 K/uL (1.4-6.5) 01/22/21 00:00 Lymph # (Auto) 0.48 K/uL (1.2-3.4) L 01/22/21 00:00 [place] # (Auto) 0.33 K/uL (0.11-0.59) 01/22/21 00:00 Eos # (Auto) 0.00 K/uL (0-0.5) 01/22/21 00:00 Baso # (Auto) 0.00 K/uL (0-0.2) 01/22/21 00:00 Immature Gran # (Auto) 0.01 K/uL (0.00-0.02) 01/22/21 00:00 PT 11.1 Seconds (9.0-12.0) 01/22/21 00:16 INR 1.1 (0.9-1.1) 01/22/21 00:16 APTT 31.3 Seconds (21.0-31.0) H 01/22/21 00:16 PTT Ratio 1.2 01/22/21 00:16 D-Dimer 730 ug/L FEU (0-500) H* 01/22/21 00:16 Sodium 138 mmol/L (136-145) 01/22/21 00:00 Potassium 3.4 mmol/L (3.5-5.1) L 01/22/21 00:00 Chloride 103 mmol/L (98-107) 01/22/21 00:00 Carbon Dioxide 32 mmol/L (21-32) 01/22/21 00:00 Anion Gap 3.0 (3-11) 01/22/21 00:00 BUN 17 mg/dl (7-18) 01/22/21 00:00 Creatinine 1.26 mg/dl (0.6-1.4) 01/22/21 00:00 Est Cr Clr Drug Dosing 65.5 ml/min 01/22/21 00:00 Est GFR ( Amer) 73.4 ml/min 01/22/21 00:00 Est GFR (Non-Af Amer) 63.3 ml/min 01/22/21 00:00 BUN/Creatinine Ratio 13.1 (10-20) 01/22/21 00:00 Glucose 124 mg/dl (70-99) H 01/22/21 00:00 Lactate 0.7 mmol/L (0.4-2.0) 01/22/21 00:29 Calcium 8.5 mg/dl (8.5-10.1) 01/22/21 00:00 Magnesium 2.2 mg/dl (1.8-2.4) 01/22/21 00:00 Total Bilirubin 0.6 mg/dl (0.2-1) 01/22/21 00:00 AST 34 U/L (15-37) 01/22/21 00:00 ALT 46 U/L (12-78) 01/22/21 00:00 Alkaline Phosphatase 91 U/L (45-117) 01/22/21 00:00 Troponin I 0.237 ng/ml (0-0.045) H* 01/22/21 00:00 Total Protein 8.1 gm/dl (6.4-8.2) 01/22/21 00:00 Albumin 3.7 gm/dl (3.4-5.0) 01/22/21 00:00 Globulin 4.4 gm/dl (2.5-4.0) H 01/22/21 00:00 Albumin/Globulin Ratio 0.8 (0.9-2) L 01/22/21 00:00 Urine Color Dark Yellow 01/21/21 23:48 Urine Appearance Cloudy (Clear) A 01/21/21 23:48 Urine pH 5.5 (4.5-7.5) 01/21/21 23:48 Ur Specific [place] 1.030 (1.000-1.030) 01/21/21 23:48 Urine Protein 3+ (Negative) H 01/21/21 23:48 Urine Glucose (UA) Negative (Negative) 01/21/21 23:48 Urine Ketones 1+ (Negative) H 01/21/21 23:48 Urine Blood 1+ (Negative) H 01/21/21 23:48 Urine Nitrite Negative (Negative) 01/21/21 23:48 Urine Bilirubin 1+ (Negative) H 01/21/21 23:48 Urine Urobilinogen Negative (Negative) 01/21/21 23:48 Ur Leukocyte Esterase Negative (Negative) 01/21/21 23:48 Urine WBC (Auto) 5-10 /hpf (0-5) H 01/21/21 23:48 Urine RBC (Auto) 5-10 /hpf (0-4) H 01/21/21 23:48 U Hyaline Cast (Auto) >30 /lpf (0-5) H 01/21/21 23:48 U Epithel Cells (Auto) >30 /lpf (0-5) H 01/21/21 23:48 Urine Bacteria (Auto) 1+ (Negative) H 01/21/21 23:48 Ur Renal Epithelial Cell Not Reportable 01/21/21 23:48 Granular Casts 10-20 /lpf (0) H 01/21/21 23:48 WBC Casts 5-10 /lpf (0) H 01/21/21 23:48 Urine Mucus Present (None Prsent) A 01/21/21 23:48 COVID-19 Eval Order Covid19 at [facility] 01/22/21 00:00 SARS-CoV-2 (PCR) POSITIVE (Negative) A* 01/22/21 00:[address] head initial read : No ICH, mass effect or edema. No skull fracture CT chest initial read: Multiple scattered patchygroundglass airspace opacities likelysecondaryto an atypical respiratory infection and compatible with COVID-19. No evidence of an acute pulmonaryembolus. EKG as per my interpretation rate 70, NSR, normal axis, no ischemia
[2021-01-22] MEDS ORDERED: REMDESIVIR 200 MG in SODIUM CHLORIDE 0.9% 210 ML IV STA (03:36)
[2021-01-22] MEDS ORDERED: LEVALBUTEROL TARTRATE 15 GM HFA.AER.AD INH STA (03:37)
[2021-01-22] MEDS ORDERED: SODIUM CHLORIDE 0.9% 10ML FLUSH IV SCH (03:45)
[2021-01-22 04:38] LABS: C Reactive Protein 5.41 mg/dl (0-0.29); Troponin I 0.215 ng/ml (0-0.045)
[2021-01-22] MEDS ORDERED: POTASSIUM CHLORIDE 40 MEQ in SODIUM CHLORIDE 0.9% 1000ML 1,000 ML IV ONE (04:45)
[2021-01-22] MEDS ORDERED: FLUTICASONE PROPIONATE NA SPR 16 GM BTL PRN (06:40)
[2021-01-22] MEDS ORDERED: traMADol HCL 50 MG TABLET PO PRN (06:40)
--- NOTE | 2021-01-22 07:09 | CT Scan Report ---
CT OF THE HEAD WITHOUT CONTRAST CLINICAL HISTORY: head trauma COMPARISON STUDY: No previous studies for comparison. CT DOSE: 614.27 mGy.cm TECHNIQUE: Helical axial images of the head were obtained without IV contrast. Automated exposure con trol was utilized for the study. A dose lowering technique was utilized adhering to the principles o f ALARA. FINDINGS: Incidental note is made of intravascular contrast from recent contrast-enhanced CT. No acut e intracranial hemorrhage, midline shift or mass effect is present. The ventricular system is unremar kable. The basal cisterns are patent. No extra-axial collections are present. There are no findings t o suggest acute dural sinus thrombosis or acute territorial infarct. No significant calvarial abnorma lities are present. Visualized portions of the sinuses and mastoid air cells are clear. IMPRESSION: 1. No acute intracranial findings. 2. Small right forehead contusion. No calvarial fracture. ACT 112: Negative or not required by law. Electronically signed by: Tacho Taveras M.D. 01/22/2021 7:07 AM
--- NOTE | 2021-01-22 07:31 | CT Scan Report ---
CT angio chest PE protocol CT DOSE: 426.11 mGy.cm HISTORY: 55 years-old Male with PE. Acute shortness of breath. COVID Positive. TECHNIQUE: Multiple CTA images of the chest were obtained after the intravenous administration of 120 ml Optiray. Coronal and sagittal MIPS were obtained from the axial data set and were submitted for review. All measurements were obtained according to NASCET criteria. A dose lowering technique was u tilized adhering to the principles of ALARA. COMPARISON: Chest radiograph of same day FINDINGS: CTA: The heart is for limits of normal in size. No thoracic aortic aneurysm or dissection. Suboptimal eval uation of the pulmonary artery secondary to respiratory motion artifact. No pulmonary emboli are iden tified. CT CHEST: Unremarkable thyroid. Mild subcarinal adenopathy measures up to 11 mm, likely reactive. Trace pleural effusions. No pneumothorax. Patchy multifocal lobar bilateral groundglass densities. No suspicious p ulmonary nodules are identified. The central airways appear patent. Hepatic steatosis. The spleen measures the upper limits of normal in size. Unremarkable soft tissues. No acute fracture. IMPRESSION: 1. No pulmonary emboli. 2. Patchy multilobar groundglass opacities compatible with viral pneumonia. 3. Mild likely reactive subcarinal adenopathy. 4. Hepatic steatosis. ACT 112: Negative or not required by law. The above report was generated using voice recognition software. It may contain grammatical, syntax o r spelling errors. Electronically signed by: Gautam Gonzalez M.D. 01/22/2021 7:30 AM
--- NOTE | 2021-01-22 07:39 | XRay Report ---
XR chest 1V portable CLINICAL HISTORY: SEPSIS COMPARISON STUDY: No previous studies for comparison. FINDINGS: Lung volumes are normal. There is subtle interstitial thickening and mild bilateral airspac e opacities. There is no pneumothorax or pleural effusion. Cardiac size is normal. Mediastinal contou rs are normal. There is no evidence for pulmonary edema. IMPRESSION: Subtle interstitial thickening and mild bilateral airspace opacities which favor viral p neumonia. ACT 112: Negative or not required by law. Electronically signed by: Tacho Taveras M.D. 01/22/2021 7:38 AM
--- NOTE | 2021-01-22 11:01 | Cardiology Consultation ---
Date of Consultation January 22, 2021 Assessment & Plan (1) Syncope: (2) Elevated troponin: (3) Left-sided chest pain: (4) Pneumonia due to COVID-19 virus: 55-year-old patient present to the emergency department with syncope. CT evidence of COVID-19, multifocal pneumonia. Syncopal episode likely related to underlying infectious process. Preliminary review of bedside 2D transthoracic echocardiogram demonstrates normal left ventricular systolic function without regional wall motion abnormality. No evidence of pericardial effusion to suggest pericarditis. Telemetry demonstrates sinus rhythm without dysrhythmia since admission. ECG without ischemic changes. Currently patient is chest pain-free. Etiology of mildly elevated troponins not well defined however most likely related to multifocal pneumonia. Differential includes mild myocarditis however, EF is normal. ACS less likely with normal ECG and left ventricular wall motion. Add aspirin 81 mg daily and IV heparin infusion. Trend troponins x3 sets. Monitor telemetry. Supportive care/treatment of multifocal pneumonia as per internal medicine. Thank you for allow me to participate in the care of your patient. History of Present Illness Reason for Consultation: Elevated troponin, chest discomfort Requesting Physician: Dr. Encarnacion Attending Physician: Nicole Serrano MD History of Present Illness 55-year-old male presented to the emergency department with syncope. Diagnosed with COVID-19 on Saturday. Experiencing dyspnea on exertion and cough. Home pulse oximetry above 90%. Reports several episodes of chest discomfort over the past 48 hours. Discomfort typically occurring when lying supine. Experienced a syncopal last evening. He had climbed a set of stairs and was in his bedroom. He became acutely lightheaded. Denied any preceding chest discomfort or palpitations. Awoke on the floor. Head trauma/laceration noted. He was brought to the emergency department for further evaluation and treatment. Elevated D-dimer prompted CT angiogram which was negative for pulmonary embolus. His troponins were mildly elevated and flat. Experienced 2 episodes of short- lived chest discomfort overnight. Chest pain free since approximately 4 AM. ECG without ischemic changes. Over the past few days, patient has noted exertional shortness of breath and fatigue. No orthopnea, PND, or lower extremity edema. Denies any history of syncope or palpitations. No history of coronary disease, congestive heart failure, or rheumatic fever as a child. Currently resting comfortably. Chest pain-free at this time. Voices concern over persistent fevers at home which were refractory to Tylenol and Advil. Fevers have resolved this morning. Overall feeling much better today. Tolerated his a.m. meal. Offers no other concerns/complaints. Allergies Allergy/AdvReac Type Severity Reaction Status Date / Time ciprofloxacin AdvReac Intermediate Joint Pain Verified 01/22/21 00:33 Home Medications Medication Instructions Recorded Confirmed Type amoxicillin 500 mg-potassium 1 tab PO BID 01/22/21 01/22/21 History clavulanate 125 mg tablet fluticasone propionate 50 2 spray INTRANASAL DAILY PRN 01/22/21 01/22/21 History mcg/actuation nasal spray,suspension Patient History Social History Smoking Status: Never smoker Hx Alcohol Use: No Hx Substance Use: No Preferred Language: Honduran Communication Ability: Effective Instrumentation Specialist Required: No Beliefs That Will Affect Care: None Current Living Situation: Spouse Other Information That Helps Us Care for You: No Feels Safe at Home: Yes Safety Concerns: Feels Safe At This Time Assistive Devices: None Review of Systems Review of Systems: All systems reviewed & are unremarkable except as noted in Subjective Physical Exam Constitutional: well developed and well nourished; no acute distress Respiratory: normal respiratory effort; no respiratory distress, no labored breathing and no retractions Auscultation: no crackles, no rales, no rhonchi and no wheezes Cardiovascular: Rate/Rhythm: regular rate and regular rhythm Heart Sounds: normal S1 and normal S2 Palpation: normal PMI Vessels: radial pulses present; no JVD and no carotid bruit Gastrointestinal (Abdomen): Inspection/Auscultation: abdomen normal to inspection and normal bowel sounds; abdomen not distended Percussion/Palpation: abdomen soft; abdomen nontender, no guarding and abdomen not rigid Neurologic: CN's II-XI intact bilaterally and moves all extremities; no focal motor deficits Motor/Sensory: no tremor Psychiatric: A+Ox3, euthymic affect Results & Data ([facility]) Vital Signs (Past 12 Hours) Vital Signs Temp Pulse Pulse Resp BP BP Pulse Ox 01/22/21 07:44 82 01/22/21 06:10 36.9 C 85 16 146/88 H 95 01/22/21 03:30 82 19 117/89 95 01/22/21 02:30 91 H 23 111/75 93 11/07/21 02:00 90 15 105/80 92 01/22/21 01:00 EST 91 H 13 159/108 H 94 01/22/21 01:48 EDT 39.2 C H 01/22/21 00:30 90 18 153/96 H 93 01/22/21 00:24 95 (1) Syncope Syncope type: unspecified Qualified Code(s): R55 - Syncope and collapse
[2021-01-22] MEDS ORDERED: HEPARIN SOD (PORCINE) 1000 UNIT/ML IV ONE (11:17)
--- NOTE | 2021-01-22 11:18 | Electrocardiogram Report ---
Test Reason : Blood Pressure : / mmHG Vent. Rate : 097 BPM Atrial Rate : 097 BPM P-R Int : 146 ms QRS Dur : 076 ms QT Int : 368 ms P-R-T Axes : 038 016 016 degrees QTc Int : 467 ms Normal sinus rhythm Normal ECG When compared with ECG of 12-AUG-2018 16:34, Nonspecific T wave abnormality now evident in Inferior leads Confirmed by Aj Harris ([id number]) on 01/22/2021 11:18:00 AM Referred By: REFERRED SELF Confirmed By:Aj Harris
[2021-01-22] MEDS ORDERED: Heparin IV Adult Wt-Based Standard WITH Bolus Protocol IV SCH (11:30)
[2021-01-22] MEDS ORDERED: HEPARIN IV BOLUS 6,000 UNITS in SYRINGE 0 ML IV ONE (12:00)
[2021-01-22] MEDS: HEPARIN SODIUM/DEXTROSE 25,000 UNITS/500 ML BAG IV SCH (12:19)
[2021-01-22] MEDS: ASPIRIN 81 MG ECTAB PO SCH (12:29)
[2021-01-22] MEDS: ACETAMINOPHEN 325 MG TAB PO PRN ×2 (17:00→23:33)
[2021-01-22 19:14] LABS: Partial Thromboplastin Ratio 4.5
--- NOTE | 2021-01-22 19:14 | Hospitalist Progress Note ---
Date of Service January 22, 2021 Assessment & Plan (1) Pneumonia due to COVID-19 virus: Plan: Presented to the ER after having a syncopal episode Tested positive for COVID-19 CXR showed no pulmonary emboli. Patchy multilobar groundglass opacities compatible with viral pneumonia. Mild likely reactive subcarinal adenopathy. In the ER dexamethasone and remdesivir administered, will continue for now Patient was counseled regarding potential adverse effects from Remdesivir therapy and provided with patient education sheet on admission Currently saturating well on room air Continue incentive spirometry, flutter valve Syncopal episode Possible related to vasovagal versus hypoxia CT head showed no acute intracranial abnormality No focal neuro deficit on exam Stable Elevated troponin Troponin admission 0.237 then trending down to 0.168 EKG showed no acute ischemic changes Cardiology on board Continue IV heparin drip and aspirin Echo showed no LV wall motion abnormalities with ejection fraction 55 to 60%. No pericardial effusion Currently denies any chest pain Elevated glucose Possible related to steroid Will check hemoglobin A1c Continue monitor blood sugar Hypokalemia K 3.4 on admission K replaced Continue monitor BMP Chest pain with troponin elevation, possible viral myocarditis Syncope possibly from orthostasis given clinical dehydration as evidenced by ketonuria Rule out cardiac dysfunction Hypokalemia secondary to poor p.o. intake Hyperglycemia rule out DM DVT prophylaxis on IV heparin drip Full code Admission and Anticipated Discharge Date Admission Date: January 22, 2021 Subjective Patient was seen and examined for follow-up of shortness of breath due to COVID- 19 Lying in bed with no acute distress Patient said that he feels much better Patient is not having any breathing problem Currently saturating well on room air Denies any chest pain, palpitation, dizziness, shortness of breath. Review of Systems Review of Systems: All systems reviewed & are unremarkable except as noted in Subjective Physical Exam Physical Exam: General- No acute distress Head- atraumatic Eyes- PERRL, EOMI, ENT- oropharynx clear Neck- supple, no JVD Lungs- +diminished breath sounds Heart- regular rhythm; no murmur Abdomen- normal bowel sounds, soft, nontender Extremities- no calf tenderness Neuro- alert, oriented x 3; PERRL, EOMI; no facial palsy; no dysarthria Skin- warm & dry Results & Data Results & Data ([facility]) Vital Signs (Past 12 Hours) Vital Signs Temp Pulse Pulse Resp BP Pulse Ox 01/22/21 16:59 39.1 C H 95 H 18 158/94 H 95 01/22/21 15:24 92 H 01/22/21 11:30 36.7 C 83 18 154/91 H 95 01/22/21 07:44 82
[2021-01-22 19:23] LABS: Partial Thromboplastin Time 119.4 Seconds (21.0-31.0)
[2021-01-22] MEDS: guaiFENesin 200 MG TAB PO PRN (21:26)
[2021-01-22] MEDS: PROMETHAZINE HCL 12.5 MG in SODIUM CHLORIDE 0.9% 50 ML IV PRN (23:33)
[2021-01-23 03:52] LABS: Hematocrit (blood only) 43.4 % (42-52); Hemoglobin 15.1 g/dL (14.0-18.0); Immature Granulocytes # (auto) 0.01 K/uL (0.00-0.02); Immature Granulocytes % (auto) 0.2 %; Lymphocytes # (auto) 1.09 K/uL (1.2-3.4); Lymphocytes % (auto) 22.2 %; Mean Corpuscular Hemoglobin 31.3 pg (25-34); Mean Corpuscular Hgb Conc 34.8 g/dL (32-36); Mean Platelet Volume 10.1 fL (7.4-10.4); Monocytes # (auto) 0.24 K/uL (0.11-0.59); Monocytes % (auto) 4.9 %; Neutrophils # (auto) 3.58 K/uL (1.4-6.5); Neutrophils % (auto) 72.7 %; Platelet Count 137 K/uL (130-400); RDW Coefficient of Variation 12.3 % (11.5-14.5); RDW Standard Deviation 40.7 fL (36.4-46.3); Red Blood Count 4.82 M/uL (4.7-6.1); White Blood Count 4.92 K/uL (4.8-10.8)
[2021-01-23 04:17] LABS: Partial Thromboplastin Ratio 3.1
[2021-01-23 04:25] LABS: Albumin Globulin Ratio 0.7 (0.9-2); Albumin Level 2.6 gm/dl (3.4-5.0); Bilirubin,Total 0.4 mg/dl (0.2-1); C Reactive Protein 3.96 mg/dl (0-0.29); Calcium 7.5 mg/dl (8.5-10.1); Creatinine Clr Calc Pharmacy 94.8 ml/min; Est GFR (African American) 111.8 ml/min; Est GFR (Non-African American) 96.5 ml/min; Ferritin 886.7 ng/ml (8-388); Globulin 3.6 gm/dl (2.5-4.0); Potassium 3.7 mmol/L (3.5-5.1); Total Protein 6.2 gm/dl (6.4-8.2)
[2021-01-23 04:34] LABS: Partial Thromboplastin Time 81.4 Seconds (21.0-31.0)
[2021-01-23] MEDS: ACETAMINOPHEN 325 MG TAB PO PRN ×3 (05:36→20:04)
[2021-01-23] MEDS ORDERED: REMDESIVIR 100 MG in SODIUM CHLORIDE 0.9% 230 ML IV SCH (06:00)
[2021-01-23 07:26] LABS: Estimated Average Glucose 108 mg/dl; Hemoglobin A1C 5.4 % (4.5-5.6)
[2021-01-23] MEDS: ASPIRIN 81 MG ECTAB PO SCH (08:03)
[2021-01-23 09:42] LABS: Partial Thromboplastin Ratio 2.4
[2021-01-23 09:44] LABS: Partial Thromboplastin Time 63.6 Seconds (21.0-31.0)
[2021-01-23] MEDS: dexAMETHasone 6 MG in SYRINGE 0 ML IV SCH (10:08)
[2021-01-23] MEDS: REMDESIVIR 100 MG in SODIUM CHLORIDE 0.9% 230 ML IV SCH (11:57)
--- NOTE | 2021-01-23 12:04 | Cardiology Progress Note ---
Date of Service January 23, 2021 Assessment & Plan (1) Syncope: (2) Elevated troponin: (3) Left-sided chest pain: (4) Pneumonia due to COVID-19 virus: Plan: Continue to monitor telemetry. Results of echocardiogram discussed with patient. No regional wall motion abnormalities, pericardial fusion, or evidence of LV systolic dysfunction. With elevated troponin, elevated D-dimer, and intermittent chest discomfort, recommend continuing IV heparin at this time. Repeat ECG in a.m. continue low-dose aspirin. Supportive care/treatment of multifocal Covid pneumonia as per internal medicine. Admission and Anticipated Discharge Date Admission Date: January 22, 2021 Subjective Patient seen and examined the bedside. Recurrent fevers noted over the past 24 hours. Patient feeling fatigued. Telemetry reveals sinus rhythm. Hypoxia noted overnight requiring supplemental oxygen. Patient reports occasional cough. No orthopnea or PND. Review of Systems Review of Systems: All systems reviewed & are unremarkable except as noted in Subjective Physical Exam Constitutional: well developed and well nourished; no acute distress Respiratory: normal respiratory effort; no respiratory distress, no labored breathing and no retractions Auscultation: no crackles, no rales, no rhonchi and no wheezes Cardiovascular: Rate/Rhythm: regular rate and regular rhythm Heart Sounds: normal S1 and normal S2 Palpation: normal PMI Vessels: radial pulses present; no JVD and no carotid bruit Gastrointestinal (Abdomen): Inspection/Auscultation: abdomen normal to inspection and normal bowel sounds; abdomen not distended Percussion/Palpation: abdomen soft; abdomen nontender, no guarding and abdomen not rigid Neurologic: CN's II-XI intact bilaterally and moves all extremities; no focal motor deficits Motor/Sensory: no tremor Psychiatric: A+Ox3, euthymic affect Results & Data ([facility]) Vital Signs (Past 12 Hours) Vital Signs Temp Pulse Pulse Resp BP Pulse Ox Pulse Ox 01/23/21 11:45 37.7 C H 90 20 139/85 95 01/23/21 10:07 37.7 C H 01/23/21 09:08 97 H 01/23/21 08:13 36.9 C 84 20 134/85 92 01/23/21 04:56 38.4 C H 142/89 H 01/23/21 03:57 84 18 93 01/23/21 00:21 90 (1) Syncope Syncope type: unspecified Qualified Code(s): R55 - Syncope and collapse
[2021-01-23] MEDS: SODIUM CHLORIDE 0.9% 10ML FLUSH IV SCH (13:49)
[2021-01-23] MEDS: HEPARIN SODIUM/DEXTROSE 25,000 UNITS/500 ML BAG IV SCH (19:04)
--- NOTE | 2021-01-23 23:10 | Hospitalist Progress Note ---
Date of Service January 23, 2021 Assessment & Plan (1) Pneumonia due to COVID-19 virus: Plan: Presented to the ER after having a syncopal episode Tested positive for COVID-19 CXR showed no pulmonary emboli. Patchy multilobar groundglass opacities compatible with viral pneumonia. Mild likely reactive subcarinal adenopathy. In the ER dexamethasone and remdesivir administered, will continue for now Patient was counseled regarding potential adverse effects from Remdesivir therapy and provided with patient education sheet on admission Currently saturating well on room air Continue incentive spirometry, flutter valve Syncopal episode Possible related to vasovagal versus hypoxia CT head showed no acute intracranial abnormality No focal neuro deficit on exam Stable Elevated troponin Troponin admission 0.237 then trending down to 0.168 EKG showed no acute ischemic changes Cardiology on board Continue IV heparin drip and aspirin. Patient already Echo showed no LV wall motion abnormalities with ejection fraction 55 to 60%. No pericardial effusion Currently denies any chest pain Elevated glucose Possible related to steroid Will check hemoglobin A1c Continue monitor blood sugar Hypokalemia K 3.7 on admission K replaced Continue monitor BMP Chest pain with troponin elevation, possible viral myocarditis Syncope possibly from orthostasis given clinical dehydration as evidenced by ketonuria Rule out cardiac dysfunction Hypokalemia secondary to poor p.o. intake Hyperglycemia rule out DM DVT prophylaxis on IV heparin drip Full code Admission and Anticipated Discharge Date Admission Date: January 22, 2021 Subjective Patient was seen and examined for follow-up of syncopal episode Lying in bed in no acute distress Patient said that he feels fine Denies any chest pain, palpitation, dizziness, shortness of breath. Review of Systems Review of Systems: All systems reviewed & are unremarkable except as noted in Subjective Physical Exam Physical Exam: General- No acute distress Head- atraumatic Eyes- PERRL, EOMI, ENT- oropharynx clear Neck- supple, no JVD Lungs- +diminished breath sounds Heart- regular rhythm; no murmur Abdomen- normal bowel sounds, soft, nontender Extremities- no calf tenderness Neuro- alert, oriented x 3; PERRL, EOMI; no facial palsy; no dysarthria Skin- warm & dry Results & Data Results & Data ([facility]) Vital Signs (Past 12 Hours) Vital Signs Temp Pulse Pulse Resp BP Pulse Ox 01/23/21 23:06 37.1 C 76 18 132/76 97 01/23/21 19:57 38.5 C H 85 20 143/86 H 95 01/23/21 17:28 84 01/23/21 16:19 37.6 C H 85 18 133/85 95 01/23/21 11:45 37.7 C H 90 20 139/85 95
[2021-01-24 06:06] LABS: Partial Thromboplastin Ratio 3.3
[2021-01-24 06:12] LABS: Albumin Level 2.8 gm/dl (3.4-5.0); BUN Creatinine Ratio 15.9 (10-20); Calcium 7.8 mg/dl (8.5-10.1); Creatinine Clr Calc Pharmacy 91.6 ml/min; Est GFR (African American) 110.3 ml/min; Est GFR (Non-African American) 95.1 ml/min; Potassium 3.6 mmol/L (3.5-5.1)
[2021-01-24 06:16] LABS: Albumin Globulin Ratio 0.7 (0.9-2); Bilirubin,Total 0.5 mg/dl (0.2-1); C Reactive Protein 3.89 mg/dl (0-0.29); Globulin 3.8 gm/dl (2.5-4.0); Partial Thromboplastin Time 86.9 Seconds (21.0-31.0); Total Protein 6.6 gm/dl (6.4-8.2)
[2021-01-24] MEDS: ACETAMINOPHEN 325 MG TAB PO PRN (06:29)
[2021-01-24] MEDS: HEPARIN SODIUM/DEXTROSE 25,000 UNITS/500 ML BAG IV SCH ×2 (07:18→09:28)
[2021-01-24] MEDS: ASPIRIN 81 MG ECTAB PO SCH (07:48)
[2021-01-24] MEDS: dexAMETHasone 6 MG in SYRINGE 0 ML IV SCH (07:48)
[2021-01-24] MEDS: REMDESIVIR 100 MG in SODIUM CHLORIDE 0.9% 230 ML IV SCH (12:15)
[2021-01-24 13:29] LABS: Partial Thromboplastin Ratio 2.7
[2021-01-24] MEDS: SODIUM CHLORIDE 0.9% 10ML FLUSH IV SCH (13:40)
--- NOTE | 2021-01-24 13:51 | Cardiology Progress Note ---
Date of Service January 24, 2021 Assessment & Plan (1) Syncope: (2) Elevated troponin: (3) Left-sided chest pain: (4) Pneumonia due to COVID-19 virus: Plan: Echocardiogram without regional wall motion abnormalities, pericardial fusion, or evidence of LV systolic dysfunction. With elevated troponin, elevated D- dimer, and intermittent chest discomfort, recommend continuing IV heparin and low-dose aspirin. Supportive care/treatment of multifocal Covid pneumonia as per internal medicine. Admission and Anticipated Discharge Date Admission Date: January 22, 2021 Subjective Patient seen and examined at the bedside. Mild hypoxia unchanged. Denies recurrent chest pain or shortness of breath. Continues to note intermittent fevers. Telemetry feels sinus rhythm. No dysrhythmias. Offers no new concerns/complaints. Review of Systems Review of Systems: All systems reviewed & are unremarkable except as noted in Subjective Physical Exam Constitutional: well developed and well nourished; no acute distress Respiratory: normal respiratory effort; no respiratory distress, no labored breathing and no retractions Auscultation: no crackles, no rales, no rhonchi and no wheezes Cardiovascular: Rate/Rhythm: regular rate and regular rhythm Heart Sounds: normal S1 and normal S2 Palpation: normal PMI Vessels: radial pulses present; no JVD and no carotid bruit Gastrointestinal (Abdomen): Inspection/Auscultation: abdomen normal to inspection and normal bowel sounds; abdomen not distended Percussion/Palpation: abdomen soft; abdomen nontender, no guarding and abdomen not rigid Neurologic: CN's II-XI intact bilaterally and moves all extremities; no focal motor deficits Motor/Sensory: no tremor Psychiatric: A+Ox3, euthymic affect Results & Data ([facility]) Vital Signs (Past 12 Hours) Vital Signs Temp Pulse Pulse Resp BP Pulse Ox 01/24/21 11:35 37.3 C 79 18 143/67 H 92 01/24/21 08:08 87 01/24/21 07:44 37.2 C 85 18 128/80 93 01/24/21 07:03 38.5 C H 01/24/21 04:42 37.6 C 94 H 20 146/86 H 93 (1) Syncope Syncope type: unspecified Qualified Code(s): R55 - Syncope and collapse
[2021-01-24] MEDS ORDERED: guaiFENesin 200 MG TAB PO PRN (17:53)
[2021-01-24] MEDS ORDERED: SALINE NASAL 225 SPRAYS, GENTAMICIN SULFATE 60 MG, BARCODE IDENTIFIER 0 EA PRN (18:39)
[2021-01-24] MEDS ORDERED: SODIUM CHLORIDE 0.65% NA SOLN 45 ML (OCEAN) ONE (18:52)
[2021-01-24] MEDS: guaiFENesin 200 MG TAB PO PRN (20:48)
[2021-01-24 20:51] LABS: Partial Thromboplastin Ratio 2.4
[2021-01-24 21:41] LABS: Partial Thromboplastin Time 62.6 Seconds (21.0-31.0)
[2021-01-24] MEDS: PROMETHAZINE HCL 12.5 MG in SODIUM CHLORIDE 0.9% 50 ML IV PRN (21:50)
--- NOTE | 2021-01-24 23:54 | Hospitalist Progress Note ---
Date of Service January 24, 2021 Assessment & Plan (1) Pneumonia due to COVID-19 virus: Plan: Presented to the ER after having a syncopal episode Tested positive for COVID-19 CXR showed no pulmonary emboli. Patchy multilobar groundglass opacities compatible with viral pneumonia. Mild likely reactive subcarinal adenopathy. In the ER dexamethasone and remdesivir administered, will continue for now Patient was counseled regarding potential adverse effects from Remdesivir therapy and provided with patient education sheet on admission Currently saturating well on room air Continue to have intermittent fever Continue incentive spirometry, flutter valve Syncopal episode Possible related to vasovagal versus hypoxia CT head showed no acute intracranial abnormality No focal neuro deficit on exam Stable Elevated troponin Troponin admission 0.237 then trending down to 0.168 EKG showed no acute ischemic changes Cardiology on board Continue IV heparin drip and aspirin. Patient already Echo showed no LV wall motion abnormalities with ejection fraction 55 to 60%. No pericardial effusion Currently denies any chest pain Elevated glucose Possible related to steroid Most recent hemoglobin A1c 5.4 Continue monitor blood sugar Hypokalemia K 3.6 on admission Continue monitor BMP DVT prophylaxis on IV heparin drip Full code Admission and Anticipated Discharge Date Admission Date: January 22, 2021 Subjective Patient was seen and examined for follow-up of syncopal episode and fever Lying in bed in no acute distress Patient has been having intermittent fever with most recent fever was early this morning Denies any chest pain, palpitation, dizziness, shortness of breath. Review of Systems Review of Systems: All systems reviewed & are unremarkable except as noted in Subjective Physical Exam Physical Exam: General- No acute distress Head- atraumatic Eyes- PERRL, EOMI, ENT- oropharynx clear Neck- supple, no JVD Lungs- +diminished breath sounds Heart- regular rhythm; no murmur Abdomen- normal bowel sounds, soft, nontender Extremities- no calf tenderness Neuro- alert, oriented x 3; PERRL, EOMI; no facial palsy; no dysarthria Skin- warm & dry Results & Data Results & Data ([facility]) Vital Signs (Past 12 Hours) Vital Signs Temp Pulse Pulse Resp BP BP Pulse Ox 01/24/21 23:40 37.6 C H 72 18 135/88 94 01/24/21 22:54 74 01/24/21 20:04 37.1 C 74 20 151/95 H 92 01/24/21 15:47 36.8 C 78 20 161/90 H 90 01/24/21 15:45 79
[2021-01-25] MEDS: HEPARIN SODIUM/DEXTROSE 25,000 UNITS/500 ML BAG IV SCH (06:14)
[2021-01-25 07:24] LABS: Hemoglobin 15.8 g/dL (14.0-18.0); Mean Corpuscular Hemoglobin 31.7 pg (25-34); Mean Corpuscular Hgb Conc 36.7 g/dL (32-36); Mean Corpuscular Volume 86.3 fL (80-100); Mean Platelet Volume 9.8 fL (7.4-10.4); Platelet Count 153 K/uL (130-400); RDW Coefficient of Variation 12.3 % (11.5-14.5); RDW Standard Deviation 39.3 fL (36.4-46.3); Red Blood Count 4.98 M/uL (4.7-6.1); White Blood Count 4.59 K/uL (4.8-10.8)
[2021-01-25 07:46] LABS: Partial Thromboplastin Ratio 2.2
[2021-01-25 07:56] LABS: Albumin Level 2.8 gm/dl (3.4-5.0); BUN Creatinine Ratio 20.8 (10-20); C Reactive Protein 2.33 mg/dl (0-0.29); Calcium 8.5 mg/dl (8.5-10.1); Creatinine Clr Calc Pharmacy 107.1 ml/min; Est GFR (African American) 117.6 ml/min; Est GFR (Non-African American) 101.4 ml/min; Potassium 3.6 mmol/L (3.5-5.1)
[2021-01-25 08:01] LABS: Albumin Globulin Ratio 0.7 (0.9-2); Bilirubin,Total 0.5 mg/dl (0.2-1); Total Protein 6.8 gm/dl (6.4-8.2)
[2021-01-25 08:13] LABS: Partial Thromboplastin Time 56.7 Seconds (21.0-31.0)
[2021-01-25] MEDS: dexAMETHasone 6 MG in SYRINGE 0 ML IV SCH (08:38)
[2021-01-25] MEDS: guaiFENesin 200 MG TAB PO PRN ×2 (08:38→20:36)
[2021-01-25] MEDS: ASPIRIN 81 MG ECTAB PO SCH (08:38)
[2021-01-25] MEDS: PROMETHAZINE HCL 12.5 MG in SODIUM CHLORIDE 0.9% 50 ML IV PRN (11:24)
[2021-01-25] MEDS: ACETAMINOPHEN 325 MG TAB PO PRN (11:49)
[2021-01-25] MEDS: REMDESIVIR 100 MG in SODIUM CHLORIDE 0.9% 230 ML IV SCH (12:19)
[2021-01-25] MEDS ORDERED: CALCIUM CARBONATE 500 MG CHEWABLE TAB PO PRN (12:35)
[2021-01-25] MEDS: PANTOprazole 40 MG TAB PO SCH (13:40)
[2021-01-25] MEDS: SODIUM CHLORIDE 0.9% 10ML FLUSH IV SCH (13:40)
--- NOTE | 2021-01-25 15:18 | Hospitalist Progress Note ---
Date of Service January 25, 2021 Assessment & Plan (1) Pneumonia due to COVID-19 virus: Plan: Not being vaccinated for COVID-19 Presented to the ER after having a syncopal episode Tested positive for COVID-19 CXR showed no pulmonary emboli. Patchy multilobar groundglass opacities compatible with viral pneumonia. Mild likely reactive subcarinal adenopathy. In the ER dexamethasone and remdesivir administered, will continue for now Patient was counseled regarding potential adverse effects from Remdesivir therapy and provided with patient education sheet on admission Continue incentive spirometry, flutter valve Has been requiring up to 2 L of oxygen to maintain saturation Has minimal cough and minimal shortness of breath at rest Syncopal episode Possible related to vasovagal versus hypoxia CT head showed no acute intracranial abnormality No focal neuro deficit on exam Still has dizziness with ambulation No arrhythmias noted on monitor Elevated troponin Troponin admission 0.237 then trending down to 0.168 EKG showed no acute ischemic changes Cardiology on board-appreciate input and recommendation Continue IV heparin drip and aspirin. Echo showed no LV wall motion abnormalities with ejection fraction 55 to 60%. No pericardial effusion Currently denies any chest pain Elevated glucose Possible related to steroid Most recent hemoglobin A1c 5.4 Continue monitor blood sugar Hypokalemia K 3.6 on admission Continue monitor BMP DVT prophylaxis on IV heparin drip Full code Admission and Anticipated Discharge Date Admission Date: January 22, 2021 Subjective 01/25/2021 The patient was seen and examined in telemetry unit and in the Covid room He has been feeling much better and denies any significant respiratory symptoms Still complains to have dizziness with ambulation Denies any chest pain and/or palpitation Review of Systems Review of Systems: All systems reviewed and are unremarkable except as noted below Respiratory: Minimal shortness of breath at rest Cardiovascular: Additional Comments: No palpitation and/or chest pain Neurologic: Dizziness with ambulation Physical Exam Constitutional: well developed, well nourished and + ill appearing Eyes: PERRL, conjunctivae normal, anicteric sclerae ENMT: external ear and nose normal, oropharynx normal Neck: trachea midline, no thyromegaly Respiratory: + cough and + tachypneic; no respiratory distress Auscultation: + diminished lung sounds and + crackles (Minimal crackles at the bases); no wheezes Cardiovascular: Rate/Rhythm: regular rate and regular rhythm; not tachycardic Heart Sounds: normal S1 and normal S2; no murmur Extremities: no edema Gastrointestinal (Abdomen): Inspection/Auscultation: normal bowel sounds; abdomen not distended Percussion/Palpation: + abdomen tender (In the epigastrium) and abdomen soft Musculoskeletal: No acute arthritis in any joint Neurologic: Alert, awake and oriented x3. No focal sensory and motor deficit appreciated Lymphatic: no cervical or axillary lymphadenopathy Results & Data Results & Data ([facility]) Vital Signs (Past 12 Hours) Vital Signs Temp Pulse Pulse Resp BP Pulse Ox 01/25/21 11:29 90 01/25/21 11:28 37.6 C H 86 20 142/88 H 88 L 01/25/21 07:58 37.1 C 86 18 131/89 01/25/21 07:23 94 H 01/25/21 03:50 36.9 C 81 20 117/80 95 Laboratory Results Short CBC 01/25/21 Range/Units 06:36 WBC 4.59 L (4.8-10.8) K/uL Hgb 15.8 (14.0-18.0) g/dL Hct 43.0 (42-52) % Plt Count 153 (130-400) K/uL BMP 01/25/21 06:36 Sodium 138 Potassium 3.6 Chloride 104 Carbon Dioxide 26 BUN 16 Creatinine 0.77 Glucose 91 Calcium 8.5 Liver Function 01/25/21 Range/Units 06:36 Total Bilirubin 0.5 (0.2-1) mg/dl AST 137 H (15-37) U/L ALT 119 H (12-78) U/L Alkaline Phosphatase 62 (45-117) U/L Albumin 2.8 L (3.4-5.0) gm/dl Medications Administered Current Inpatient Medications Acetaminophen (Acetaminophen 325 Mg Tab) 650 mg PO Q6H PRN PRN Reason: Fever/pain Stop: 02/21/21 06:39 Last Admin: 01/25/21 11:49 Dose: 650 mg Documented by: Aspirin (Aspirin 81 Mg Ectab) 81 mg PO DAILY CHELY Stop: 02/21/21 11:59 Last Admin: 01/25/21 08:38 Dose: 81 mg Documented by: Calcium Carbonate (Calcium Carbonate 500 Mg Chewable Tab) 500 mg PO Q6H PRN PRN Reason: Indigestion Stop: 02/24/21 12:34 Fluticasone Propionate (Fluticasone Propionate Na Spr 16 Gm Btl) 2 sprays NA DAILY PRN PRN Reason: Congestion Stop: 02/21/21 06:39 Guaifenesin (Guaifenesin 200 Mg Tab) 200 mg PO Q6H PRN PRN Reason: cough Stop: 02/21/21 19:44 Last Admin: 01/25/21 08:38 Dose: 200 mg Documented by: Remdesivir 100 mg/ Sodium (Chloride) 250 mls @ 250 mls/hr IV Q24H CHELY; Protocol Stop: 01/26/21 12:59 Last Infusion: 01/25/21 13:42 Dose: Infused Documented by: Dexamethasone 6 mg/ Syringe 1.5 mls @ 1 mls/min IV DAILY CHELY Stop: 02/22/21 08:59 Last Admin: 01/25/21 08:38 Dose: 1 mls/min Documented by: Promethazine HCl 12.5 mg/ (Sodium Chloride) 50.5 mls @ 202 mls/hr IV Q6H PRN PRN Reason: Nausea And Vomiting Stop: 02/21/21 06:39 Last Infusion: 01/25/21 11:49 Dose: Infused Documented by: Heparin Sodium/Dextrose (Heparin Sodium/Dextrose) 25,000 units in 500 mls @ 18 mls/hr IV .Q24H CHELY; Protocol Stop: 02/21/21 11:29 Last Titration: 01/25/21 08:34 Dose: 900 units/hr, 18 mls/hr Documented by: Pantoprazole Sodium (Pantoprazole 40 Mg Tab) 40 mg PO QAM [facility] Stop: 02/24/21 12:59 Last Admin: 01/25/21 13:40 Dose: 40 mg Documented by: Sodium Chloride (Sodium Chloride 0.9% 10ml Flush) 30 ml IV DAILY@1200 CHELY Stop: 01/26/21 12:01 Last Admin: 01/25/21 13:40 Dose: 30 ml Documented by: Tramadol HCl (Tramadol Hcl 50 Mg Tablet) 25 - 50 mg PO Q4H PRN PRN Reason: Pain Stop: 02/21/21 06:39
--- NOTE | 2021-01-25 16:11 | Cardiology Progress Note ---
Date of Service January 25, 2021 Assessment & Plan (1) Syncope: (2) Elevated troponin: (3) Left-sided chest pain: (4) Pneumonia due to COVID-19 virus: Plan: Echocardiogram without regional wall motion abnormalities, pericardial fusion, or evidence of LV systolic dysfunction. With elevated troponin, elevated D- dimer, and intermittent chest discomfort, recommend continuing IV heparin and low-dose aspirin. Consider discontinuation of IV heparin in the next 24-48 hours. Supportive care/treatment of multifocal Covid pneumonia as per internal medicine. Ultimately, patient will require outpatient restratification with stress testing when he has recovered from COVID-19 pneumonia. Admission and Anticipated Discharge Date Admission Date: January 22, 2021 Subjective Interview conducted via telephone. Patient reports recurrent fever this afternoon. Feeling better today. No chest discomfort or palpitations. Continues to note lightheadedness with positional changes. Lying prone to improve oxygenation. Requiring 2 L nasal cannula. Telemetry reveals no dysrhythmia. Review of Systems Review of Systems: All systems reviewed & are unremarkable except as noted in Subjective Results & Data ([facility]) Vital Signs (Past 12 Hours) Vital Signs Temp Pulse Pulse Resp BP Pulse Ox 01/25/21 11:29 90 01/25/21 11:28 37.6 C H 86 20 142/88 H 88 L 01/25/21 07:58 37.1 C 86 18 131/89 01/25/21 07:23 94 H (1) Syncope Syncope type: unspecified Qualified Code(s): R55 - Syncope and collapse
[2021-01-26] MEDS: ASPIRIN 81 MG ECTAB PO SCH (08:01)
[2021-01-26] MEDS: PANTOprazole 40 MG TAB PO SCH (08:01)
[2021-01-26] MEDS: dexAMETHasone 6 MG in SYRINGE 0 ML IV SCH (08:01)
[2021-01-26] MEDS: ACETAMINOPHEN 325 MG TAB PO PRN (08:03)
[2021-01-26] MEDS: guaiFENesin 200 MG TAB PO PRN (08:04)
[2021-01-26 08:12] LABS: Partial Thromboplastin Ratio 2.5
[2021-01-26 08:15] LABS: Partial Thromboplastin Time 64.8 Seconds (21.0-31.0)
[2021-01-26] MEDS: HEPARIN SODIUM/DEXTROSE 25,000 UNITS/500 ML BAG IV SCH (08:44)
[2021-01-26] MEDS: REMDESIVIR 100 MG in SODIUM CHLORIDE 0.9% 230 ML IV SCH (12:03)
--- NOTE | 2021-01-26 12:54 | Cardiology Progress Note ---
Date of Service January 26, 2021 Assessment & Plan (1) Syncope: (2) Elevated troponin: (3) Left-sided chest pain: (4) Pneumonia due to COVID-19 virus: Plan: Discontinue intravenous heparin. Continue aspirin 81 mg daily. Supportive care/treatment of multifocal Covid pneumonia as per internal medicine. Ultimately, patient will require outpatient risk stratification with stress testing when he has recovered from COVID-19 pneumonia. No further inpatient car diac testing or intervention at this time. Admission and Anticipated Discharge Date Admission Date: January 22, 2021 Subjective Patient seen and examined at the bedside. No recurrent fevers over the past 12 hours. Feeling better today. Shortness of breath improved. Notes mild chest discomfort with deep inhalation. No recurrent chest heaviness or tightness. Denies orthopnea or PND. Telemetry reveals sinus rhythm with occasional PVCs and PACs. Review of Systems Review of Systems: All systems reviewed & are unremarkable except as noted in Subjective Physical Exam Constitutional: well developed and well nourished; no acute distress Respiratory: normal respiratory effort; no respiratory distress, no labored breathing and no retractions Auscultation: no crackles, no rales, no rhonchi and no wheezes Cardiovascular: Rate/Rhythm: regular rate and regular rhythm Heart Sounds: normal S1 and normal S2 Palpation: normal PMI Vessels: radial pulses present; no JVD and no carotid bruit Gastrointestinal (Abdomen): Inspection/Auscultation: abdomen normal to inspection and normal bowel sounds; abdomen not distended Percussion/Palpation: abdomen soft; abdomen nontender, no guarding and abdomen not rigid Neurologic: CN's II-XI intact bilaterally and moves all extremities; no focal motor deficits Motor/Sensory: no tremor Psychiatric: A+Ox3, euthymic affect Results & Data ([facility]) Vital Signs (Past 12 Hours) Vital Signs Temp Pulse Pulse Resp BP BP Pulse Ox 01/26/21 12:07 36.8 C 78 19 119/85 95 01/26/21 08:02 37.5 C 72 18 137/88 95 01/26/21 07:25 76 01/26/21 02:54 36.9 C 72 20 138/89 93 (1) Syncope Syncope type: unspecified Qualified Code(s): R55 - Syncope and collapse
[2021-01-26] MEDS: SODIUM CHLORIDE 0.9% 10ML FLUSH IV SCH (13:15)
--- NOTE | 2021-01-26 17:23 | Hospitalist Progress Note ---
Date of Service January 26, 2021 Assessment & Plan (1) Pneumonia due to COVID-19 virus: Plan: Not being vaccinated for COVID-19 Presented to the ER after having a syncopal episode Tested positive for COVID-19 CXR showed no pulmonary emboli. Patchy multilobar groundglass opacities compatible with viral pneumonia. Mild likely reactive subcarinal adenopathy. In the ER dexamethasone and remdesivir administered, will continue for now Patient was counseled regarding potential adverse effects from Remdesivir therapy and provided with patient education sheet on admission Continue incentive spirometry, flutter valve Has been requiring up to 2 L of oxygen to maintain saturation Has minimal cough and minimal shortness of breath at rest We will get nocturnal pulse oximeter tonight and to do steps O2 saturation before discharge tomorrow Syncopal episode Possible related to vasovagal versus hypoxia CT head showed no acute intracranial abnormality No focal neuro deficit on exam Still has dizziness with ambulation No arrhythmias noted on monitor No more syncope and denies any more dizziness with ambulation Elevated troponin Troponin admission 0.237 then trending down to 0.168 EKG showed no acute ischemic changes Cardiology on board-appreciate input and recommendation Continue IV heparin drip and aspirin. Echo showed no LV wall motion abnormalities with ejection fraction 55 to 60%. No pericardial effusion Currently denies any chest pain Elevated glucose Possible related to steroid Most recent hemoglobin A1c 5.4 Continue monitor blood sugar Hypokalemia K 3.6 on admission Continue monitor BMP DVT prophylaxis on IV heparin drip IV heparin has been discontinued We will give subcu heparin twice daily Full code Admission and Anticipated Discharge Date Admission Date: January 22, 2021 Subjective 01/25/2021 The patient was seen and examined in telemetry unit and in the Covid room He has been feeling much better and denies any significant respiratory symptoms Still complains to have dizziness with ambulation Denies any chest pain and/or palpitation 01/26/2021 The patient was seen and examined in telemetry unit and in the Covid room He has been feeling much better Has minimal cough and no shortness of breath at rest Denies any more dizziness with ambulation Review of Systems Review of Systems: All systems reviewed and are unremarkable except as noted below Respiratory: Minimal shortness of breath at rest Cardiovascular: Additional Comments: No palpitation and/or chest pain Neurologic: Dizziness with ambulation Physical Exam Constitutional: well developed, well nourished and + ill appearing Eyes: PERRL, conjunctivae normal, anicteric sclerae ENMT: external ear and nose normal, oropharynx normal Neck: trachea midline, no thyromegaly Respiratory: + cough and + tachypneic; no respiratory distress Auscultation: + diminished lung sounds and + crackles (Minimal crackles at the bases); no wheezes Cardiovascular: Rate/Rhythm: regular rate and regular rhythm; not tachycardic Heart Sounds: normal S1 and normal S2; no murmur Extremities: no edema Gastrointestinal (Abdomen): Inspection/Auscultation: normal bowel sounds; abdomen not distended Percussion/Palpation: + abdomen tender (In the epi gastrium) and abdomen soft Neurologic: patellar DTR's 2+ bilat, sensation intact Psychiatric: A+Ox3, euthymic affect Lymphatic: no cervical or axillary lymphadenopathy Results & Data Results & Data ([facility]) Vital Signs (Past 12 Hours) Vital Signs Temp Pulse Pulse Resp BP BP Pulse Ox 01/26/21 15:59 68 01/26/21 12:07 36.8 C 78 19 119/85 95 01/26/21 08:02 37.5 C 72 18 137/88 95 01/26/21 07:25 76 Medications Administered Current Inpatient Medications Acetaminophen (Acetaminophen 325 Mg Tab) 650 mg PO Q6H PRN PRN Reason: Fever/pain Stop: 02/21/21 06:39 Last Admin: 01/26/21 08:03 Dose: 650 mg Documented by: Aspirin (Aspirin 81 Mg Ectab) 81 mg PO DAILY CHELY Stop: 02/21/21 11:59 Last Admin: 01/26/21 08:01 Dose: 81 mg Documented by: Calcium Carbonate (Calcium Carbonate 500 Mg Chewable Tab) 500 mg PO Q6H PRN PRN Reason: Indigestion Stop: 02/24/21 12:34 Fluticasone Propionate (Fluticasone Propionate Na Spr 16 Gm Btl) 2 sprays NA DAILY PRN PRN Reason: Congestion Stop: 02/21/21 06:39 Guaifenesin (Guaifenesin 200 Mg Tab) 200 mg PO Q6H PRN PRN Reason: cough Stop: 02/21/21 19:44 Last Admin: 01/26/21 08:04 Dose: 200 mg Documented by: Dexamethasone 6 mg/ Syringe 1.5 mls @ 1 mls/min IV DAILY CHELY Stop: 02/22/21 08:59 Last Admin: 01/26/21 08:01 Dose: 1 mls/min Documented by: Promethazine HCl 12.5 mg/ (Sodium Chloride) 50.5 mls @ 202 mls/hr IV Q6H PRN PRN Reason: Nausea And Vomiting Stop: 02/21/21 06:39 Last Infusion: 01/25/21 11:49 Dose: Infused Documented by: Pantoprazole Sodium (Pantoprazole 40 Mg Tab) 40 mg PO QAM CHELY Stop: 02/24/21 12:59 Last Admin: 01/26/21 08:01 Dose: 40 mg Documented by: Tramadol HCl (Tramadol Hcl 50 Mg Tablet) 25 - 50 mg PO Q4H PRN PRN Reason: Pain Stop: 02/21/21 06:39
[2021-01-26] MEDS: HEPARIN SOD 5,000 UNIT/0.5 ML VIAL SQ SCH (20:50)
[2021-01-27] MEDS: dexAMETHasone 6 MG in SYRINGE 0 ML IV SCH (08:04)
[2021-01-27] MEDS: ASPIRIN 81 MG ECTAB PO SCH (08:05)
[2021-01-27] MEDS: PANTOprazole 40 MG TAB PO SCH (08:05)
[2021-01-27] MEDS: HEPARIN SOD 5,000 UNIT/0.5 ML VIAL SQ SCH (09:31)
--- NOTE | 2021-01-27 11:01 | XRay Report ---
SINGLE VIEW CHEST CLINICAL HISTORY: Covid pneumonia FINDINGS: An AP, portable, upright chest radiograph is compared to chest x-ray and chest CT dated 01/22/2021. The examination is degraded by portable technique and apical lordotic positioning. The cardio mediastinal silhouette is unremarkable. Multifocal airspace consolidation is again seen throughout juanita th lungs. No large pleural effusion or pneumothorax is identified. The bony thorax is grossly intact. IMPRESSION: Multifocal airspace consolidation is consistent with the reported history of a viral pneu monia. This is unchanged to minimally worsened as compared to 01/22/2021. ACT 112: Negative or not required by law. Electronically signed by: Robert Diaz M.D. 01/27/2021 11:00 AM
--- NOTE | 2021-01-27 11:50 | Hospitalist Progress Note ---
Date of Service January 27, 2021 Assessment & Plan (1) Pneumonia due to COVID-19 virus: Plan: Not being vaccinated for COVID-19 Presented to the ER after having a syncopal episode Tested positive for COVID-19 CXR showed no pulmonary emboli. Patchy multilobar groundglass opacities compatible with viral pneumonia. Mild likely reactive subcarinal adenopathy. In the ER dexamethasone and remdesivir administered, will continue for now Patient was counseled regarding potential adverse effects from Remdesivir therapy and provided with patient education sheet on admission Continue incentive spirometry, flutter valve Has been requiring up to 2 L of oxygen to maintain saturation Has minimal cough and minimal shortness of breath at rest We will get nocturnal pulse oximeter tonight and to do steps O2 saturation before discharge tomorrow He will require 2 L of oxygen at night and 2 L with ambulation as per 2 step O2 saturation test He will be discharged this afternoon Syncopal episode Possible related to vasovagal versus hypoxia CT head showed no acute intracranial abnormality No focal neuro deficit on exam Still has dizziness with ambulation No arrhythmias noted on monitor No more syncope and denies any more dizziness with ambulation Elevated troponin Troponin admission 0.237 then trending down to 0.168 EKG showed no acute ischemic changes Cardiology on board-appreciate input and recommendation Continue IV heparin drip and aspirin. Echo showed no LV wall motion abnormalities with ejection fraction 55 to 60%. No pericardial effusion Currently denies any chest pain Elevated glucose Possible related to steroid Most recent hemoglobin A1c 5.4 Continue monitor blood sugar Hypokalemia K 3.6 on admission Continue monitor BMP DVT prophylaxis on IV heparin drip IV heparin has been discontinued We will give subcu heparin twice daily Full code Admission and Anticipated Discharge Date Admission Date: January 22, 2021 Subjective 01/25/2021 The patient was seen and examined in telemetry unit and in the Covid room He has been feeling much better and denies any significant respiratory symptoms Still complains to have dizziness with ambulation Denies any chest pain and/or palpitation 01/26/2021 The patient was seen and examined in telemetry unit and in the Covid room He has been feeling much better Has minimal cough and no shortness of breath at rest Denies any more dizziness with ambulation 01/27/2021 The patient was seen and examined in telemetry unit and in the Covid room He has been feeling much better He denies any cough and/or shortness of breath at rest He wants to go home Review of Systems Review of Systems: All systems reviewed and are unremarkable except as noted below Respiratory: Minimal shortness of breath at rest Cardiovascular: Additional Comments: No palpitation and/or chest pain Neurologic: Dizziness with ambulation Physical Exam Constitutional: well developed, well nourished and + ill appearing Eyes: PERRL, conjunctivae normal, anicteric sclerae ENMT: external ear and nose normal, oropharynx normal Neck: trachea midline, no thyromegaly Respiratory: + cough and + tachypneic; no respiratory distress Auscultation: + diminished lung sounds and + crackles (Minimal crackles at the bases); no wheezes Cardiovascular: Rate/Rhythm: regular rate and regular rhythm; not tachycardic Heart Sounds: normal S1 and normal S2; no murmur Extremities: no edema Gastrointestinal (Abdomen): Inspection/Auscultation: normal bowel sounds; abdomen not distended Percussion/Palpation: + abdomen tender (In the epigastrium) and abdomen soft Neurologic: patellar DTR's 2+ bilat, sensation intact Psychiatric: A+Ox3, euthymic affect Lymphatic: no cervical or axillary lymphadenopathy Results & Data Results & Data ([facility]) Vital Signs (Past 12 Hours) Vital Signs Temp Pulse Pulse Pulse Pulse Pulse Pulse 01/27/21 10:25 66 01/27/21 09:54 88 89 84 82 01/27/21 06:05 36.8 C 78 01/27/21 06:00 01/27/21 05:47 77 01/27/21 03:42 65 01/27/21 01:23 61 01/27/21 00:00 Resp Resp Resp Resp Resp BP Pulse Ox 01/27/21 10:25 01/27/21 09:54 16 16 16 16 01/27/21 06:05 20 157/96 H 92 01/27/21 06:00 01/27/21 05:47 01/27/21 03:42 01/27/21 01:23 01/27/21 00:00 Pulse Ox Pulse Ox Pulse Ox Pulse Ox Pulse Ox 01/27/21 10:25 01/27/21 09:54 92 88 L 93 92 01/27/21 06:05 01/27/21 06:00 93 01/27/21 05:47 94 01/27/21 03:42 92 01/27/21 01:23 95 01/27/21 00:00 93 Medications Administered Current Inpatient Medications Acetaminophen (Acetaminophen 325 Mg Tab) 650 mg PO Q6H PRN PRN Reason: Fever/pain Stop: 02/21/21 06:39 Last Admin: 01/26/21 08:03 Dose: 650 mg Documented by: Aspirin (Aspirin 81 Mg Ectab) 81 mg PO DAILY CHELY Stop: 02/21/21 11:59 Last Admin: 01/27/21 08:05 Dose: 81 mg Documented by: Calcium Carbonate (Calcium Carbonate 500 Mg Chewable Tab) 500 mg PO Q6H PRN PRN Reason: Indigestion Stop: 02/24/21 12:34 Fluticasone Propionate (Fluticasone Propionate Na Spr 16 Gm Btl) 2 sprays NA DAILY PRN PRN Reason: Congestion Stop: 02/21/21 06:39 Guaifenesin (Guaifenesin 200 Mg Tab) 200 mg PO Q6H PRN PRN Reason: cough Stop: 02/21/21 19:44 Last Admin: 01/26/21 08:04 Dose: 200 mg Documented by: Heparin Sodium (Porcine) (Heparin Sod 5,000 Unit/0.5 Ml Vial) 5,000 units SQ Q12 CHELY Stop: 02/25/21 20:59 Last Admin: 01/27/21 09:31 Dose: Not Given Documented by: Dexamethasone 6 mg/ Syringe 1.5 mls @ 1 mls/min IV DAILY CHELY Stop: 02/22/21 08:59 Last Admin: 01/27/21 08:04 Dose: 1 mls/min Documented by: Promethazine HCl 12.5 mg/ (Sodium Chloride) 50.5 mls @ 202 mls/hr IV Q6H PRN PRN Reason: Nausea And Vomiting Stop: 02/21/21 06:39 Last Infusion: 01/25/21 11:49 Dose: Infused Documented by: Pantoprazole Sodium (Pantoprazole 40 Mg Tab) 40 mg PO QAM CHELY Stop: 02/24/21 12:59 Last Admin: 01/27/21 08:05 Dose: 40 mg Documented by: Tramadol HCl (Tramadol Hcl 50 Mg Tablet) 25 - 50 mg PO Q4H PRN PRN Reason: Pain Stop: 02/21/21 06:39
--- NOTE | 2021-01-27 11:57 | Cardiology Progress Note ---
Date of Service January 27, 2021 Assessment & Plan (1) Syncope: (2) Elevated troponin: (3) Left-sided chest pain: (4) Pneumonia due to COVID-19 virus: Plan: Continue aspirin 81 mg daily. Supportive care/treatment of multifocal Covid pneumonia as per internal me vasquez. Ultimately, patient will require outpatient risk stratification with stress testing when he has recovered from COVID-19 pneumonia. No further inpatient cardiac testing or intervention at this time. I will arrange for outpatient cardiology follow-up in 2-4 weeks. Admission and Anticipated Discharge Date Admission Date: January 22, 2021 Subjective Patient seen and examined at the bedside. Feeling better from a pulmonary and cardiovascular perspective. No recurrent chest discomfort. Sinus rhythm on telemetry. Heparin discontinued 01/25/2021. Review of Systems Review of Systems: All systems reviewed & are unremarkable except as noted in Subjective Physical Exam Constitutional: well developed and well nourished; no acute distress Respiratory: normal respiratory effort; no respiratory distress, no labored breathing and no retractions Auscultation: no crackles, no rales, no rhonchi and no wheezes Cardiovascular: Rate/Rhythm: regular rate and regular rhythm Heart Sounds: normal S1 and normal S2 Palpation: normal PMI Vessels: radial pulses present; no JVD and no carotid bruit Gastrointestinal (Abdomen): Inspection/Auscultation: abdomen normal to inspection and normal bowel sounds; abdomen not distended Percussion/Palpation: abdomen soft; abdomen nontender, no guarding and abdomen not rigid Neurologic: CN's II-XI intact bilaterally and moves all extremities; no focal motor deficits Motor/Sensory: no tremor Psychiatric: A+Ox3, euthymic affect Results & Data ([facility]) Vital Signs (Past 12 Hours) Vital Signs Temp Pulse Pulse Pulse Pulse Pulse Pulse 01/27/21 10:25 66 01/27/21 09:54 88 89 84 82 01/27/21 06:05 36.8 C 78 01/27/21 06:00 01/27/21 05:47 77 01/27/21 03:42 65 01/27/21 01:23 61 01/27/21 00:00 Resp Resp Resp Resp Resp BP Pulse Ox 01/27/21 10:25 01/27/21 09:54 16 16 16 16 01/27/21 06:05 20 157/96 H 92 01/27/21 06:00 01/27/21 05:47 01/27/21 03:42 01/27/21 01:23 01/27/21 00:00 Pulse Ox Pulse Ox Pulse Ox Pulse Ox Pulse Ox 01/27/21 10:25 01/27/21 09:54 92 88 L 93 92 01/27/21 06:05 01/27/21 06:00 93 01/27/21 05:47 94 01/27/21 03:42 92 01/27/21 01:23 95 01/27/21 00:00 93 (1) Syncope Syncope type: unspecified Qualified Code(s): R55 - Syncope and collapse
--- NOTE | 2021-01-28 09:25 | Discharge Summary ---
Date of Service January 28, 2021 Admission HPI Per Admitting Provider History obtained from patient and records. No significant medical history. 5 days ago, patient noted sinus congestion symptoms with cough symptoms productive of clear sputum. PCP prescribed Augmentin for possible sinusitis. No known recent COVID-19 contacts. Patient has not received COVID-19 vaccination. 2 days ago, patient noted fever, chills. Patient consulted [facility] ER. COVID-19 test was positive. Patient told he had pneumonia on CXR but did not need admission. Worsening shortness of breath at home especially on exertion. Patient also noted achy left-sided chest pain without radiation. Poor appetite with achy headache symptoms. O2 sats 85 on home pulse ox. Patient felt lightheaded on getting up last night subsequently passed out. Patient woke up with his family around him. No tongue biting, no witnessed seizures. Bleeding forehead wound noted after the fall. At the ER, lowest O2 sats noted to be 92 on room air. Decadron administered at the ER. 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 Admission Exam Per Admitting Provider Physical Exam: GENERAL: Comfortable, pleasant, no respiratory distress SKIN: Normal color, warm HEENT: Sutured laceration right frontal, [place] palpebral conjunctivae, no ptosis, dry buccal mucosa NECK : Supple, no tenderness CHEST : Decreased breath sounds, no tenderness HEART : RRR, no obvious murmurs ABDOMEN: Some distention, nontender EXTREMITIES : No LE swelling/tenderness, no other conspicuous deformities noted NEUROLOGIC : Coherent, no facial asymmetry, no other gross focality Principal Diagnosis Pneumonia due to COVID-19 virus infection, syncopal episode-resolved, Discharge Exam Constitutional well developed, well nourished and + ill appearing Eyes PERRL, conjunctivae normal, anicteric sclerae ENMT external ear and nose normal, oropharynx normal Neck trachea midline, no thyromegaly Respiratory + cough and + tachypneic; no respiratory distress Auscultation: + diminished lung sounds and + crackles (Minimal crackles at the bases); no wheezes Cardiovascular Rate/Rhythm: regular rate and regular rhythm; not tachycardic Heart Sounds: normal S1 and normal S2; no murmur Extremities: no edema Gastrointestinal (Abdomen) Inspection/Auscultation: normal bowel sounds; abdomen not distended Percussion/Palpation: + abdomen tender (In the epigastrium) and abdomen soft Neurologic patellar DTR's 2+ bilat, sensation intact Psychiatric A+Ox3, euthymic affect Lymphatic no cervical or axillary lymphadenopathy Discharge Data Allergies Allergy/AdvReac Type Severity Reaction Status Date / Time ciprofloxacin AdvReac Intermediate Joint Pain Verified 01/22/21 00:33 Consultations 01/22/21 02:25 ED Decision to Admit Stat 01/22/21 04:44 Consult Cardiology Routine Ordered Studies 01/22/21 01:40 CT angio chest PE protocol Urgent 01/22/21 03:31 CT head/brain wo con Urgent Hospital Course (1) Pneumonia due to COVID-19 virus: Not being vaccinated for COVID-19 Presented to the ER after having a syncopal episode Tested positive for COVID-19 CXR showed no pulmonary emboli. Patchy multilobar groundglass opacities compatible with viral pneumonia. Mild likely reactive subcarinal adenopathy. In the ER dexamethasone and remdesivir administered, will continue for now Patient was counseled regarding potential adverse effects from Remdesivir therapy and provided with patient education sheet on admission Continue incentive spirometry, flutter valve Has been requiring up to 2 L of oxygen to maintain saturation Has minimal cough and minimal shortness of breath at rest We will get nocturnal pulse oximeter tonight and to do steps O2 saturation before discharge tomorrow He will require 2 L of oxygen at night and 2 L with ambulation as per 2 step O2 saturation test He will be discharged this afternoon Syncopal episode Possible related to vasovagal versus hypoxia CT head showed no acute intracranial abnormality No focal neuro deficit on exam Still has dizziness with ambulation No arrhythmias noted on monitor No more syncope and denies any more dizziness with ambulation Elevated troponin Troponin admission 0.237 then trending down to 0.168 EKG showed no acute ischemic changes Cardiology on board-appreciate input and recommendation Continue IV heparin drip and aspirin. Echo showed no LV wall motion abnormalities with ejection fraction 55 to 60%. No pericardial effusion Currently denies any chest pain Elevated glucose Possible related to steroid Most recent hemoglobin A1c 5.4 Continue monitor blood sugar Hypokalemia K 3.6 on admission Continue monitor BMP DVT prophylaxis on IV heparin drip IV heparin has been discontinued We will give subcu heparin twice daily Full code Total Time Total Time Spent Total Time Spent (In Minutes): 40 minutes Discharge Plan Discharge Items Patient Disposition: Home - Self-Care Reason For Visit: CP, COVID PNX Discharge Diagnosis: Pneumonia due to COVID-19 virus infection, syncopal episode-resolved, Condition on Discharge: Fair Activity: Resume your previous activity Non-emergency contact: Primary Care Provider Call non-emergency contact if: you have any medication questions and your symptoms worsen Follow-up/Referrals: Kristi Bautista D.O. [Primary Care Provider] - 01/31/21 11:00 am (Please make an appointment with your primary care provider within 1 week) Diet: Regular Addtl Attending Provider Instructions: Please take precautions to avoid fall Use your oxygen as advised Try [id number] cough suppressant Maintain isolation as per CDC guideline as below until 17 of this month: Home Isolation COVID-19 Instructions The following information about Home Isolation is from the CDC Website: https://www.cdc.gov/coronavirus/2019-ncov/hcp/pxnlupzy-mxjdgqs-wzavqm.html Stay home except to get medical care People who are mildly ill with COVID-19 are able to isolate at home during their illness. You should restrict activities outside your home, except for getting medical care. Do not go to work, school, or public areas. Avoid using public transportation, ride-sharing, or taxis. Separate yourself from other people and animals in your home People: As much as possible, you should stay in a specific room and away from other people in your home. Also, you should use a separate bathroom, if available. Animals: You should restrict contact with pets and other animals while you are sick with COVID-19, just like you would around other people. Although there have not been reports of pets or other animals becoming sick with COVID-19, it is still recommended that people sick with COVID-19 limit contact with animals until more information is known about the virus. When possible, have another me mber of your household care for your animals while you are sick. If you are sick with COVID-19, avoid contact with your pet, including petting, snuggling, being kissed or licked, and sharing food. If you must care for your pet or be around animals while you are sick, wash your hands before and after you interact with pets and wear a face mask. Call ahead before visiting your doctor If you have a medical appointment, call the healthcare provider and tell them that you have or may have COVID-19. This will help the healthcare providers office take steps to keep other people from getting infected or exposed. Wear a face mask You should wear a face mask when you are around other people (e.g., sharing a room or vehicle) or pets and before you enter a healthcare providers office. If you are not able to wear a face mask (for example, because it causes trouble breathing), then people who live with you should not stay in the same room with you, or they should wear a face mask if they enter your room. Cover your coughs and sneezes Cover your mouth and nose with a tissue when you cough or sneeze. Throw used tissues in a lined trash can. Immediately wash your hands with soap and water for at least 20 seconds or, if soap and water are not available, clean your hands with an alcohol-based hand supervisor electric that contains at least 60% alcohol. Clean your hands often Wash your hands often with soap and water for at least 20 seconds, especially after blowing your nose, coughing, or sneezing; going to the bathroom; and before eating or preparing food. If soap and water are not readily available, use an alcohol-based hand supervisor electric with at least 60% alcohol, covering all surfaces of your hands and rubbing them together until they feel dry. Soap and water are the best option if hands are visibly dirty. Avoid touching your eyes, nose, and mouth with unwashed hands. Avoid sharing personal household items You should not share dishes, drinking glasses, cups, eating utensils, towels, or bedding with other people or pets in your home. After using these items, they should be washed thoroughly with soap and water. Clean all high-touch surfaces everyday High touch surfaces include counters, tabletops, doorknobs, bathroom fixtures, toilets, phones, keyboards, tablets, and bedside tables. Also, clean any surfaces that may have blood, stool, or body fluids on them. Use a household cleaning spray or wipe, according to the label instructions. Labels contain instructions for safe and effective use of the cleaning product including precautions you should take when applying the product, such as wearing gloves and making sure you have good ventilation during use of the product. Monitor your symptoms Seek prompt medical attention if your illness is worsening (e.g., difficulty breathing).Beforeseeking care, call your healthcare provider and tell them that you have, or are being evaluated for, COVID-19. Put on a face mask before you enter the facility. These steps will help the healthcare providers office to keep other people in the office or waiting room from getting infected or exposed. Ask your healthcare provider to call the local or state health department. Persons who are placed under active monitoring or facilitated self- monitoring should follow instructions provided by their local health department or occupational health professionals, as appropriate. When working with your local health department check their available hours. If you have a medical emergency and need to call 911, notify the dispatch personnel that you have, or are being evaluated for COVID-19. If possible, put on a face mask before emergency medical services arrive. Discontinuing home isolation Patients with confirmed COVID-19 should remain under home isolation precautions until the risk of secondary transmission to others is thought to be low. The decision to discontinue home isolation precautions should be made on a [id number]-[id number] basis, in consultation with healthcare providers and state and local health departments. Pending Studies at Discharge: No Stand-Alone Forms: [facility], Smoking Cessation Medications and DC Order Prescriptions: New pantoprazole 40 mg Tablet,Delayed Release (Dr/Ec) 40 mg PO QAM 30 Days Qty: 30 RF: 0 dexamethasone 6 mg tablet 6 mg PO DAILY Qty: 5 RF: 0 aspirin 81 mg Tablet,Delayed Release (Dr/Ec) 81 mg PO DAILY 30 Days Qty: 30 RF: 0 Continued fluticasone propionate 50 mcg/actuation spray,suspension 2 spray INTRANASAL DAILY PRN (Reason: Congestion) RF: 0 Discontinued amoxicillin-pot clavulanate 500-125 mg tablet 1 tab PO BID RF: 0 Discharge Orders: Discharge Order (Routine); Ordered 01/27/21 Ordered By: Kayla Rose Admission Data Admit Date/Time: 01/22/21 04:39 Attending Provider: Kayla Rose Admit Provider: Mahad Flores Primary Care Provider: Michele,Kirsti M. Other Providers: Chiki Doran Vivek Medina ; Savage Rao ; Antoine Vann ; Enrique Hernandez ; Maximino Alberts ; Saima Pickens ; Kristi Herring ; Luana Bryant ; Vidal Prabhakar ; Mahad Flores ; Nicole Serrano Other Interventions: Discharge Summary Assessment (RN) Last Done: 01/27/21 13:36
--- NOTE | 2021-02-02 15:49 | Coding Query ---
CODING QUERY To promote full compliance with coding requirements relating to patient care, provider participation is requested in all cases of load tester uncertainty. Please assist us with the question(s) below: Coding Question(s): Pt admitted with syncope, positive for covid 19 pneumonia. Troponin on admission .237 falling to 0.168 . EKG showed no acute changes. Please document, if known or suspected , a diagnosis for this clinical finding. Thank you. Drake Poe [facility] Physician's Response(s): As per cardiology note: Etiology of mildly elevated troponins not well defined however most likely related to multifocal pneumonia. Differential includes mild myocarditis however, EF is normal. ACS less likely with normal ECG and left ventricular wall motion. Principal Diagnosis: "that condition established after study, to be chiefly responsible for occasioning the admission of the patient to the hospital for care." Co-Existing Principal Diagnosis: "when two or more diagnoses equally meet the criteria for principal diagnosis as determined by the circumstances of admission, diagnostic work up, and/or therapy provided, and the Alphabetic Index, Tabular List, or another coding guideline does not provide sequencing direction, any one of the diagnoses may be sequenced first." "When the physician has documented what appears to be a current diagnosis in the body of the record, but has not included the diagnosis in the final diagnostic statement, the physician should be asked whether the diagnosis should be added." (Source Coding Clinic 2 QTR90. p3-4) [facility]
== END 2021-01-27 16:40 | disposition home or self-care (01) | DRG 177 ==
LOC: ED 23:22 → SUATTDRO 01-22 04:39 → 2S 01-22 04:39